=== PATIENT | female | born 1985 | race Caucasian/White ===

== ENCOUNTER 2018-05-01 16:01 | Inpatient (IN) | payer MEDICARE, MEDICAID ==
[2018-05-01 16:28] LABS: ABS Basophils 0.1 10^3/ul (0-0.2); ABS Eosinophils 0.1 10^3/ul (0-0.6); ABS Lymphocytes 1.5 10^3/ul (1.0-4.8); ABS Monocytes 0.6 10^3/ul (0-0.8); ABS Neutrophils 5.8 10^3/ul (1.5-7.7); ABS Nucleated RBC 0 10^3/ul; Eosinophil % 1.5 %; Hematocrit 41 % (35-47); Hemoglobin 14.3 g/dl (12.0-16.0); Lymphocyte % 18.4 %; Mean Corpuscular HGB Conc 35 g/dl (31-36); Mean Corpuscular Hemoglobin 31 pg (27-31); Mean Corpuscular Volume 88 fL (80-97); Mean Platelet Volume 9.1 fL (7.4-10.4); Nucleated Red Blood Cells % 0; Platelet Count 239 10^3/ul (150-450); Red Blood Count 4.67 10^6/ul (4.00-5.40); Red Cell Distribution Width 13 % (10.5-15); White Blood Count 8.1 10^3/ul (3.5-10.8)
[2018-05-01 16:48] LABS: ALT 11 U/L (7-52); AST 13 U/L (13-39); Albumin 3.9 g/dL (3.2-5.2); Albumin/Globulin Ratio 1.4 (1-3); Alkaline Phosphatase 63 U/L (34-104); Anion Gap 8 mmol/L (2-11); BUN/Creatinine Ratio 12.8 (8-20); Blood Urea Nitrogen 10 mg/dL (6-24); CO2 Carbon Dioxide 27 mmol/L (22-32); Calcium 9.4 mg/dL (8.6-10.3); Chloride 105 mmol/L (101-111); EGFR Non-African American 85.1 (>60); Globulin 2.8 g/dL (2-4); Glucose 96 mg/dL (70-100); Potassium 4.1 mmol/L (3.5-5.0); Sodium 140 mmol/L (135-145); Total Protein 6.7 g/dL (6.4-8.9)
--- NOTE | 2018-05-01 17:04 | ED ---
Psychiatric Complaint - HPI Summary HPI Summary: This pt is a 33 y/o female [facility] [place] and SI. Pt reports she feels "like she wants to " because she has an addiction to opiates. Pt states she feels depressed with SI thoughts. Denies SI plan or HI thoughts/plan. Denies alcohol use but admits to tobacco use. Pt also c/o chronic back pain. PMHx includes back problems, fractured ankle. - History Of Current Complaint Chief Complaint: EDMentalHealth Time Seen by Provider: 05/01/18 16:13 Hx Obtained From: Patient Onset/Duration: Lasting Days, Still Present Timing: Days Severity Currently: Moderate Character: Depressed Aggravating Factor(s): Drug Use - opiates Alleviating Factor(s): Nothing Related History: Positive For: Prior Psychiatric Issues Has Suicidal: Reports: Thoughts. Denies: With A Plan Has Homicidal: Denies: Thoughts, With A Plan - Allergies/Home Medications Allergies/Adverse Reactions: Allergies Allergy/AdvReac Type Severity Reaction Status Date / Time MS Clindamycin [Clindamycin] Allergy Severe Vomiting Verified 09/22/14 07:39 MS Amoxicillin Allergy Intermediate Rash Verified 09/22/14 07:39 [From Augmentin] MS Clavulanic Acid Allergy Intermediate Rash Verified 09/22/14 07:39 [From Augmentin] MS Penicillins [Penicillins] Allergy Intermediate Rash Verified 09/22/14 07:39 Home Medications: Home Medications Azithromyxin KALYAN (NF) [Z-Kalyan (Zithromax) 250 mg tabs #6] 2 tab PO .TODAY, THEN 1 DAILY 05/01/18 [History Confirmed 05/01/18] Diclofenac Sodium EC TAB* [Voltaren EC TAB*] 50 mg PO TID PRN 05/01/18 [History Confirmed 05/01/18] Divalproex ER TAB(*) [Depakote ER TAB(*)] 500 mg PO BID 05/01/18 [History Confirmed 05/01/18] Eszopiclone (NF) [Lunesta (NF)] 3 mg PO BEDTIME 05/01/18 [History Confirmed ] Gabapentin CAP(*) [Neurontin 300 CAP(*)] 600 mg PO BID 05/01/18 [History Confirmed 05/01/18] HYDROcodone/ACETAMIN 5-325 MG* [[place] 5-325 TAB*] 1 tab PO BID PRN 05/01/18 [ History Confirmed 05/01/18] LORazepam TAB(*) [Ativan 0.5 MG TAB (*)] 0.5 mg PO BID PRN 05/01/18 [History Confirmed 05/01/18] Lurasidone(*) [Latuda] 60 mg PO DAILY 05/01/18 [History Confirmed 05/01/18] Oxybutynin TAB* [Ditropan TAB*] 5 mg PO BID 05/01/18 [History Confirmed 05/01/18 ] Venlafaxine EXT RELEASE CAP* [Effexor Xr CAP*] 75 mg PO DAILY 05/01/18 [History Confirmed 05/01/18] traMADol TAB* [Ultram*] 50 mg PO BID PRN 05/01/18 [History Confirmed 05/01/18] PMH/Surg Hx/FS Hx/Imm Hx Respiratory History: Reports: Hx Asthma Musculoskeletal History: Reports: Hx Back Problems, Hx of Fracture(s) - ankle Psychiatric History: Reports: Hx Anxiety, Hx Bipolar Disorder, Hx Substance Abuse - opiate Infectious Disease History: No Infectious Disease History: Denies: Traveled Outside the [place] in Last 30 Days - Family History Family History: Mother with depression and anxiety. Maternal grandfather who committed suicide. - Social History Alcohol Use: None Substance Use Type: Reports: Other Substance Use Comment - Amount & Last Used: opiates Smoking Status (MU): Current Every Day Smoker Review of Systems Negative: Fever, Chills Negative: Chest Pain Negative: Shortness Of Breath Negative: Abdominal Pain Musculoskeletal: Other - POS: back pain Psychological: Other - POS: SI Positive: Depressed. Negative: Other - NEGATIVE: HI All Other Systems Reviewed And Are Negative: Yes Physical Exam - Summary Physical Exam Summary: Appearance: Well appearing, no pain distress Skin: warm, dry, reflects adequate perfusion Head/face: normal Eyes: EOMI, WALT ENT: normal Neck: supple, nontender Respiratory: CTA, breath sounds present Cardiovascular: RRR, pulses symmetrical Abdomen: nontender, soft Musculoskeletal: normal, strength/ROM intact Neuro: normal, sensory motor intact, A&Ox3 Psych: depressed affect. Triage Information Reviewed: Yes Vital Signs On Initial Exam: Initial Vitals Temp Pulse Resp BP Pulse Ox 97.9 F 102 18 133/94 97 05/01/18 16:02 05/01/18 16:02 05/01/18 16:02 05/01/18 16:02 05/01/18 16:02 Vital Signs Reviewed: Yes Diagnostics - Vital Signs Vital Signs Temp Pulse Resp BP Pulse Ox 05/01/18 16:02 97.9 F 102 18 133/94 97 - Laboratory Lab Results: Lab Results 05/01/18 05/01/18 Range/Units 16:20 16:20 WBC 8.1 (3.5-10.8) 10^3/ul RBC 4.67 (4.00-5.40) 10^6/ul Hgb 14.3 (12.0-16.0) g/dl Hct 41 (35-47) % MCV 88 (80-97) fL MCH 31 (27-31) pg MCHC 35 (31-36) g/dl RDW 13 (10.5-15) % Plt Count 239 (150-450) 10^3/ul MPV 9.1 (7.4-10.4) fL Neut % (Auto) 72.0 % Lymph % (Auto) 18.4 % [place] % (Auto) 7.2 % Eos % (Auto) 1.5 % Baso % (Auto) 0.9 % Absolute Neuts (auto) 5.8 (1.5-7.7) 10^3/ul Absolute Lymphs (auto) 1.5 (1.0-4.8) 10^3/ul Absolute Monos (auto) 0.6 (0-0.8) 10^3/ul Absolute Eos (auto) 0.1 (0-0.6) 10^3/ul Absolute Basos (auto) 0.1 (0-0.2) 10^3/ul Absolute Nucleated RBC 0 10^3/ul Nucleated RBC % 0 Sodium 140 (135-145) mmol/L Potassium 4.1 (3.5-5.0) mmol/L Chloride 105 (101-111) mmol/L Carbon Dioxide 27 (22-32) mmol/L Anion Gap 8 (2-11) mmol/L BUN 10 (6-24) mg/dL Creatinine 0.78 (0.51-0.95) mg/dL Est GFR ( Amer) 102.9 (>60) Est GFR (Non-Af Amer) 85.1 (>60) BUN/Creatinine Ratio 12.8 (8-20) Glucose 96 (70-100) mg/dL Calcium 9.4 (8.6-10.3) mg/dL Total Bilirubin 0.50 (0.2-1.0) mg/dL AST 13 (13-39) U/L ALT 11 (7-52) U/L Alkaline Phosphatase 63 (34-104) U/L Total Protein 6.7 (6.4-8.9) g/dL Albumin 3.9 (3.2-5.2) g/dL Globulin 2.8 (2-4) g/dL Albumin/Globulin Ratio 1.4 (1-3) TSH Pending Beta HCG, Quant 7.00 mIU/mL Salicylates Pending Acetaminophen Pending Serum Alcohol Pending Result Diagrams: 05/01/18 16:20 05/01/18 16:20 Lab Statement: Any lab studies that have been ordered have been reviewed, and results considered in the medical decision making process. Re-Evaluation - Re-Evaluation First Eval Re-Evaluation Time: 17:51 Comment: Pt is medically cleared. Course/Dx - Course Assessment/Plan: Pt is a 33 y/o female who presents with depression and SI. Pt reports she feels "like she wants to " because she has an addiction to opiates. Pt states she feels depressed with SI thoughts. Denies SI plan or HI thoughts/plan. Pt is medically cleared at 17:51. She is waiting for a mental health evaluation. Pt will be signed out to Dr. Cordero at shift change pending MHE. - Differential Dx/Clinical Impression Provider Diagnosis: Depression Discharge - Sign-Out/Discharge Documenting (check all that apply): Sign-Out Patient Signing out patient TO: Denys Cordero - pending MHE - Discharge Plan Condition: Stable Referrals: No Primary Care Phys,NOPCP [Primary Care Provider] - - Attestation Statements Document Initiated by Scribe: Yes Documenting Scribe: Daily Bennett Provider For Whom Scribe is Documenting (Include Credential): David Carrasco MD Scribe Attestation: IDaily, scribed for David Carrasco MD on 05/01/18 at 1842. Status of Scribe Document: Ready
[2018-05-01 17:08] LABS: Acetaminophen < 15 mcg/mL; Alcohol < 10 mg/dL (<10); Salicylate < 2.50 mg/dL (<30)
[2018-05-01 17:22] LABS: TSH (Thyroid Stimulating Horm) 0.85 mcIU/mL (0.34-5.60)
[2018-05-01 17:24] LABS: Urine Appearance Cloudy; Urine Bilirubin Negative (Negative); Urine Blood Negative (Negative); Urine Color Yellow; Urine Glucose Negative (Negative); Urine Ketones Trace (Negative); Urine Nitrite Negative (Negative); Urine Protein Negative (Negative); Urine Specific Gravity 1.019 (1.010-1.030); Urine Urobilinogen Negative (Negative)
[2018-05-01 17:32] LABS: Barbiturates Urine Screen None Detected (None Detect); Benzodiazepine Urine Screen Presumptive Positive (None Detect); Urine Cannabinoids Screen None Detected (None Detect)
--- OUTSIDE RECORDS SUMMARY | 2018-05-01 17:45 | XMS REPORT | Continuity of Care Document ---
:1985 External Reference #:[id number] Author Name Jeannette Banks Care Team Providers Name Role Phone Erica Lopez MD Primary Care Physician Unavailable Payers Type Date Identification Numbers Payment Provider Subscriber Policy Number: [id number] Medicare Lianne Zabala PayID: [id number] [address] [place] [address] Policy Number: [id number] Medicaid Lianne Zabala Group Name: [id number] [address] PayID: [id number] [place] [address] Advance Directives Description No Information Available Problems Date Description Provider Status Onset: 01/03/2018 Closed fracture of shaft of fibula Tee Adame M.D. Active Family History Date Family Member(s) Problem(s) Comments General Nadine's "diaggnosed to both parents (?) Social History Type Date Description Comments Sex Unknown Lives With Lives With Son Occupation Disabled Tobacco Use Start: Unknown Heavy tobacco smoker (more than 10 cigarettes/day) ETOH Use Denies alcohol use Tobacco Use Start: Unknown Patient is a current smoker, smokes every day Tobacco Use Start: Unknown 1 to 1,5 ppd Smoking Status Reviewed: 04/02/18 1 to 1,5 ppd Exercise Type/Frequency Exercises regularly Allergies, Adverse Reactions, Alerts Date Description Reaction Status Severity Comments 11/18/2013 Augmentin Urticaria Active Severe 11/18/2013 Clindamycin Urticaria Active Severe 01/03/2018 Amoxicillin Active 01/03/2018 Amoxicillin / Clavulanate Active Medications Medication Date Status Form Strength Qnty SIG Indications Ordering Provider Milo 01/04/ Active Tablets 5-325mg 60tab 1 tab up to Tee baird three times Deep, daily as M.D. needed for pain Ventolin HFA / Active Aerosol 108(90Bas 1unit 2 puffs by Unknown 0000 e) s mouth four mcg/Act times a day as needed Venlafaxine HCL / Active Tablets 75mg 1 by mouth Unknown 0000 every day Divalproex // Active Tablets DR 250mg 1 by mouth Unknown Sodium 0000 twice a day Divalproex / Active Tablets DR 500mg take one Unknown Sodium 0000 tablet by mouth twice a day Latuda / Active Tablets 60mg every night Unknown 0000 Gabapentin / Active Capsules 400mg 1 by mouth Unknown 0000 three times a day Methocarbamol / Active Tablets 750mg take 1 Unknown 0000 tablet every six hours as needed for pain. Singulair / Active Tablets 10mg 1 by mouth Unknown 0000 every day Lunesta / Active Tablets 3mg take 1 Unknown 0000 tablet by mouth at bedtime for insomnia - maximum daily dose of 1 per day Ativan / Active Tablets 0.5mg one bid prn Unknown 0000 Knee Scooter 01/03/ Hx 1unit Dx: S82.861A Tee 2018 Heath s Merle Deep, 01/14/ Melvi Dubose 2018 fx, has to be nwb for 4 to 6 weeks Buspirone HCL / Hx Tablets 5mg 30tab 1 by mouth Unknown 0000 - s twice a day 2013 Abilify / Hx Tablets 5mg 30tab 1 by mouth Unknown 0000 - s every day 2013 Abilify / Hx Tablets 2mg 30tab 1 by mouth Unknown 0000 - s every night 2013 Melatonin / Hx Capsules 5mg 1 by mouth Unknown 0000 - every night 01/19/ at bedtime 2013 Venlafaxine HCL / Hx Tablets 37.5mg 1 by mouth Unknown 0000 - every day 2013 Trileptal / Hx Tablets 300mg 180ta 2 tabs by Unknown 0000 - bs mouth twice 01/19/ a day as 2013 directed Vit C // Hx 2000mg Unknown 0000 - 2017 Clonazepam / Hx Tablets 0.5mg Unknown 0000 - 2017 Zolpidem 00/00/ Hx Tablets 10mg 1/2 to 1 tab Unknown Tartrate 0000 - by mouth every night 2018 at bedtime as needed Lurasidone / Hx 60 mg a day Unknown Hyrochloride 0000 - 2017 Hydrocodone-Butch / Hx Tablets 5-325mg 1 or 2 tabs Unknown taminophen 0000 - by mouth 01/14/ every 6-8 2018 hours as needed for pain Methocarbamol / Hx Tablets 500mg 1 by mouth Unknown 0000 - twice a day 12/17/ as needed 2018 for spasm Ibuprofen / Hx Tablets 600mg three times Unknown 0000 - a day 2017 Immunizations Description No Information Available Vital Signs Date Vital Result Comment 04/02/2018 9:41am Height 64 inches 5'4" Weight 256.00 lb Heart Rate 80 /min BP Systolic Recheck 130 mmHg BP Diastolic Recheck 82 mmHg Respiratory Rate 16 /min Body Temperature 98.4 F BMI (Body Mass Index) 43.9 kg/m2 03/05/2018 8:55am Height 64 inches 5'4" Weight 250.00 lb Heart Rate 76 /min BP Systolic Recheck 128 mmHg BP Diastolic Recheck 84 mmHg Respiratory Rate 16 /min Body Temperature 98.4 F BMI (Body Mass Index) 42.9 kg/m2 02/19/2018 11:37am Height 64 inches 5'4" Weight 250.00 lb Heart Rate 76 /min BP Systolic Recheck 122 mmHg BP Diastolic Recheck 76 mmHg Respiratory Rate 16 /min Body Temperature 98.4 F BMI (Body Mass Index) 42.9 kg/m2 01/31/2018 11:21am Height 64 inches 5'4" Weight 250.00 lb Heart Rate 76 /min BP Systolic Recheck 136 mmHg BP Diastolic Recheck 84 mmHg Respiratory Rate 16 /min Body Temperature 99.1 F BMI (Body Mass Index) 42.9 kg/m2 01/15/2018 4:20pm Height 64 inches 5'4" Weight 250.00 lb Heart Rate 88 /min BP Systolic Recheck 128 mmHg BP Diastolic Recheck 84 mmHg Respiratory Rate 16 /min Body Temperature 97.4 F BMI (Body Mass Index) 42.9 kg/m2 01/03/2018 9:09am Height 64 inches 5'4" Weight 250.00 lb Heart Rate 76 /min BP Systolic Recheck 132 mmHg BP Diastolic Recheck 84 mmHg Respiratory Rate 16 /min Body Temperature 97.5 F BMI (Body Mass Index) 42.9 kg/m2 01/19/2014 3:02pm Height 63.5 inches 5'3.50" Weight 208.00 lb Heart Rate 76 /min BP Systolic Sitting 104 mmHg BP Diastolic Sitting 70 mmHg Pain Level 5 BMI (Body Mass Index) 36.3 kg/m2 11/18/2013 3:24pm Height 63.5 inches 5'3.50" Weight 197.25 lb Heart Rate 78 /min BP Systolic Sitting 118 mmHg BP Diastolic Sitting 80 mmHg BMI (Body Mass Index) 34.4 kg/m2 Results Description No Information Available Procedures Date Code Description Status 01/04/2018 68951 Open [place] Of Distaltibiofibular JT Disruption W Or W/O Completed Fixation 01/04/2018 25897 ORIF Open TX Medial Malleolus FX Incl Internal Fixation Completed Encounters Type Date Location Provider Dx Diagnosis Office Visit 01/03/2018 Orthopedic Services Tee Adame, S82.861A Displaced 9:00a Of [facility] AT Michael Dubose [place]isonneuve's fracture of right leg, init Office Visit 01/19/2014 Rheumatology Benji Beatty, 729.1 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 at [facility] AT Rvgenvmo29/20/2018 - Tee Adame M.D.S82.861D Displaced Maisonneuve's fracture of right leg, subsequent en
--- OUTSIDE RECORDS SUMMARY | 2018-05-01 17:45 | XMS REPORT | Continuity of Care Document ---
:1985 External Reference #:[id number] Author Name Alka Piña Care Team Providers Name Role Phone rEica Lopez MD Primary Care Physician Unavailable Payers Type Date Identification Numbers Payment Provider Subscriber Policy Number: [id number] Medicare Lianne Zabala PayID: [id number] [address] [place] [address] Policy Number: [id number] Medicaid Lianne Zabala Group Name: [id number] [address] PayID: [id number] [place] [address] Advance Directives Description No Information Available Problems [...] 1 to 1,5 ppd Smoking Status Reviewed: 04/25/18 1 to 1,5 ppd Exercise Type/Frequency Exercises regularly Allergies, Adverse Reactions, Alerts Date Description Reaction Status Severity Comments 11/18/2013 Augmentin Urticaria Active Severe 11/18/2013 Clindamycin Urticaria Active Severe 01/03/2018 Amoxicillin Active 01/03/2018 Amoxicillin / Clavulanate Active Medications Medication Date Status Form Strength Qnty SIG Indications Ordering Provider Ventolin HFA / Active Aerosol 108(90Bas 1unit 2 puffs by Unknown 0000 e) s mouth four mcg/Act times a day as needed Venlafaxine HCL / Active Tablets 75mg 1 by mouth Unknown 0000 every day Divalproex 00/ Active Tablets DR 250mg 1 by mouth [...] Tablets 0.5mg one bid prn Unknown 0000 Tramadol HCL / Active Tablets 50mg 1 bid prn Unknown 0000 [place] 01/04/ Hx Tablets 5-325mg 40tab 1 to 2 tabs Tee 2017 Heath baird daily as Deep, 04/22/ needed for Gracy 2018 pain Knee Scooter 01/03/ Hx 1unit Dx: S82.861A Tee 2017 Heath s Displaced Deep, 01/14/ Melvi Small fx, has to be nwb for 4 [...] a day as 2013 directed Vit C / Hx 2000mg Unknown 0000 - 2017 Clonazepam / Hx Tablets 0.5mg Unknown 0000 - 2017 Zolpidem / Hx Tablets 10mg 1/2 to 1 tab Unknown Tartrate 0000 - by mouth every night 2018 at bedtime as needed Lurasidone / Hx 60 mg a day Unknown Hyrochloride 0000 - 2017 Hydrocodone-Butch / Hx Tablets 5-325mg 1 or 2 tabs Unknown taminophen 0000 - by mouth every 6-8 2018 hours as needed for pain Methocarbamol / Hx Tablets 500mg 1 by mouth Unknown 0000 - twice a day as needed 2018 for spasm Ibuprofen / Hx Tablets 600mg three times Unknown 0000 - a day 2017 Immunizations Description No Information Available Vital Signs Date Vital Result Comment 04/25/2018 8:41am Height 64 inches 5'4" Weight 266.00 lb Heart Rate 80 /min BP Systolic Recheck 132 mmHg BP Diastolic Recheck 84 mmHg Respiratory Rate 16 /min Body Temperature 981.0 F BMI (Body Mass Index) 45.7 kg/m2 04/02/2018 9:41am Height 64 inches 5'4" Weight [...] Available Procedures Date Code Description Status 01/04/2018 62595 Open TX Of Distaltibiofibular JT Disruption W Or W/O Completed Fixation 01/04/2018 51110 ORIF Open TX Medial Malleolus FX Incl Internal Fixation Completed Encounters Type Date Location Provider Dx Diagnosis Office Visit 01/03/2018 Orthopedic Services Tee Adame, S82.861A Displaced 9:00a Of [facility] AT Michaelfransico Dubose Maisonneuve's fracture of right leg, init Office Visit 01/19/2014 Rheumatology Benji Beatty, 729.1 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 at [facility] AT Ugypmpul67/13/2018 - Tee Adame M.D.S82.861D Displaced Maisonneuve's fracture of right leg, subsequent enFollow up:6 weeks
--- OUTSIDE RECORDS SUMMARY | 2018-05-01 17:45 | XMS REPORT ---
:[address] [facility] Care Team Providers Name Role Phone Ernesto Juárez Unavailable Unavailable PROBLEMS Unknown Problems ALLERGIES No Information ENCOUNTERS Encounter Location Date Diagnosis [address] [address] Jun, [address] [address] Jun, [address] [address] Apr, [address] [address] Apr, [facility] [address] [place], [place] Apr, [id number] [address] Dec, [address] [address] Oct, [place] [id number] [place], [address] [address] Jun, [address] [address] May, [address] [address] Apr, IMMUNIZATIONS No Known Immunizations SOCIAL HISTORY Never Assessed REASON FOR REFERRAL FUNCTIONAL STATUS PLAN OF CARE VITAL SIGNS MEDICATIONS Unknown Medications PROCEDURES No Known procedures RESULTS No Results REASON FOR VISIT Schedule cleaning and exam Insurance Providers [facility]ly [facility] Member Patient Patient Patient Patient Patient Subscriber Subscriber Subscriber Group Insurance Plan Plan Plan Plan ID Relationship Address Phone Name Date of ID Name Date of No Type Insurance Insurance Insurance Coverage to Subscriber Address Phone Name Dates Medicare National [id number] Medicare self Juliette [id number] P[employer] Government [employer] [address] [facility] [id number] Medicaid [address] [phone] Medicaid self Juliette [id number] [facility] [address] [place] [id number]
[2018-05-01] MEDS ORDERED: Ibuprofen TAB* 600 MG PO ONE (18:23)
--- NOTE | 2018-05-01 19:26 | ED ---
Progress - Progress Note Progress Note: SIGN-OUT FROM DR. MCCORD AT SHIFT CHANGE PENDING MHE AND DISPO. A 33 y/o F presents to ED for MHE c/o depression and SI. Re-Evaluation - Re-Evaluation First Eval Re-Evaluation Time: 17:51 Comment: Pt is medically cleared. Course/Dx - Course Course Of Treatment: SIGN-OUT FROM DR. MCCORD AT SHIFT CHANGE PENDING MHE AND DISPO. Nurses note reviewed. At 1915: Spoke with retail branch manager: Pt will be voluntarily admitted to [facility] per Dr. Swan, psych. Patient given treatment for her cough and cold symptoms. Outpatient Zithromax continued. - Diagnoses Provider Diagnoses: Opioid-induced mood disorder, Upper respiratory infection Discharge - Sign-Out/Discharge Documenting (check all that apply): Patient Departure - Admit, Receiving Sign- Out Receiving patient FROM: David Mccord - Discharge Plan Condition: Stable Disposition: [facility] [place] - Billing Disposition and Condition Condition: STABLE Disposition: Psychiatric Facility [facility] [place] - Attestation Statements Document Initiated by Scribe: Yes Documenting Scribe: Cristy Henriquez Provider For Whom Scribe is Documenting (Include Credential): Dr. Denys Cordero MD Scribe Attestation: ICristy scribed for Dr. Denys Cordero MD on 05/01/18 at 2341. Scribe Documentation Reviewed: Yes Provider Attestation: The documentation as recorded by the Cristy rosado accurately reflects the service I personally performed and the decisions made by me, Dr. Denys Cordero MD Status of Scribe Document: Viewed
[2018-05-01] MEDS ORDERED: guaiFENesin ER TAB 600 MG PO ONE (20:35)
[2018-05-01] MEDS ORDERED: Azithromycin TAB* 250 MG PO ONE (20:35)
[2018-05-01] MEDS ORDERED: Nicotine GUM* 2 MG PO PRN (20:48)
[2018-05-01] MEDS ORDERED: hydrOXYzine HCL TAB* 50 MG PO PRN (20:48)
[2018-05-01] MEDS ORDERED: Acetaminophen TAB* 325 MG PO PRN (20:48)
[2018-05-01] MEDS ORDERED: Al Hydrox/Mg Hydrox/Simet LIQ* 30 ML UDC PO PRN (20:48)
[2018-05-01] MEDS ORDERED: Mouth Piece, Nicotine* 1 EACH CARTRIDGE INH SCH (20:48)
[2018-05-02 07:24] LABS: HDL Cholesterol 28.8 mg/dL
[2018-05-02] MEDS: Gabapentin CAP(*) 300 MG PO SCH ×2 (07:32→20:30)
[2018-05-02] MEDS: Oxybutynin TAB* 5 MG PO SCH ×2 (07:33→20:30)
[2018-05-02] MEDS: Vitamin THERAPEUTIC TAB PO SCH (07:33)
[2018-05-02] MEDS: Lurasidone(*) 60 MG TAB PO SCH (08:39)
[2018-05-02] MEDS ORDERED: Venlafaxine EXT RELEASE CAP* 75 MG PO SCH (09:00)
[2018-05-02] MEDS ORDERED: Divalproex ER TAB(*) 500 MG PO SCH (09:00)
[2018-05-02] MEDS ORDERED: traMADol TAB* 50 MG PO ONE ×2 (11:18→21:00)
[2018-05-02] MEDS ORDERED: Gabapentin CAP(*) 300 MG PO ONE (11:18)
[2018-05-02] MEDS: Azithromycin TAB* 250 MG PO SCH (13:57)
[2018-05-02] MEDS: Nicotine PATCH 21 MG/24 HR* PATCH TRANSDERM SCH (13:59)
[2018-05-02] MEDS: Benzocaine/Menthol LOZ* 1 LOZENGE MT PRN (13:59)
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
[2018-05-02] MEDS: Divalproex ER TAB(*) 500 MG PO SCH (20:32)
[2018-05-02] MEDS: Nicotine Patch Removal NOTE FOLLOW UP SCH (21:07)
[2018-05-02] MEDS: Nicotine Inhaler* 10 MG AMP INH PRN (22:05)
[2018-05-03 08:17] LABS: HCG Pregnancy < 0.60 mIU/mL
[2018-05-03] MEDS: Nicotine PATCH 21 MG/24 HR* PATCH TRANSDERM SCH (08:59)
[2018-05-03] MEDS: Lurasidone(*) 60 MG TAB PO SCH (09:00)
[2018-05-03] MEDS: Azithromycin TAB* 250 MG PO SCH (09:01)
[2018-05-03] MEDS: Venlafaxine EXT RELEASE CAP* 37.5 MG PO SCH (09:01)
[2018-05-03] MEDS: Vitamin THERAPEUTIC TAB PO SCH (09:01)
[2018-05-03] MEDS: Gabapentin CAP(*) 300 MG PO SCH ×3 (09:02→21:11)
[2018-05-03] MEDS: Oxybutynin TAB* 5 MG PO SCH ×2 (09:02→21:11)
[2018-05-03] MEDS: Nicotine Inhaler* 10 MG AMP INH PRN ×3 (10:00→17:03)
[2018-05-03] MEDS: traMADol TAB* 50 MG PO PRN ×2 (11:28→22:28)
[2018-05-03] MEDS: LORazepam TAB(*) 0.5 MG PO PRN ×2 (14:30→21:13)
--- NOTE | 2018-05-03 15:35 | PN ---
Subjective - Subjective Date of Service: 05/03/18 Service Type: 88674 Hosp care 25 min moderate complexity Subjective: Patient endorses psychological withdrawal. She reports diffuse pain in her mid and lower back. She reports slight improvement in sleep last night. We review past medications. She endorses trial of duloxetine and trazodone. She states history of tapering from depakote with and experiencing significant mood lability. She agrees to continue with stopping norco but would like to continue tramadol. Armature Repairer discussed recommendation to avoid suboxone treatment at this time and to utilize lorazepam for anxiety related to withdrawal from hydrocodone. Patient notified of blood results, including negative Hcg. Objective - Appearance Appearance: Obese Dysmorphic Features: Yes Hygiene: Normal Grooming: Fairly Well Kept - Behavior Psychomotor Activities: Normal Exhibits Abnormal Movement: No - Attitude and Relatedness Attitude and Relatedness: Cooperative Eye Contact: Fair - Speech Quality: Unpressured Latencies: Normal Quantity: Appropriate - Mood Patient's Decription of Mood: "Anxious" - Affect Observed Affect: Depressed Affect Consistent with: Dysphoria - Thought Process Patient's Thought Process: Coherent, Circumstantial Thought Content: Yes Passive Wish, No Suicidal Planning, No Homicidal Ideation, No Paranoid Ideation - Sensorium Experiencing Hallucinations: No, Sensorium is Clear Type of Hallucinations: Visual: No, Auditory: No, Command: No - Level of Consciousness Level of Consciousness: Alert Orientation: Yes Intact, Yes Orientated to Time, Yes Orientated to Place, Yes Orientated to Person - Impulse Control Impulse Control: Intact - Insight and Judgement Insight and Judgement: Poor - Group Participation Particating in Group Activities: Yes - Medication Management Medication Management Adherence: Yes Assessment - Assessment Merits Inpatient Hospitalization: For Immediate Safety, For Stabilization Inpatient DSM-V Dx: F11.23 Clinical Impression: 33yo wf, mentally disabled, , domiciled who presented to ED self- referred due to suicidal ideation and request for detox from opiate pain medication. She is tolerating discontinuation of hydrocodone and wants to remain on tramadol. She has a history of bipolar d/o and is prescribed Latuda, Depakote, venlafaxine. She merits hospitalization for immediate safety and stabilization. Plan - Plan Treatment Plan: Name: GENNARO MARTINEZ Birthdate: 1985 [id number] continue acute intensive psychiatric treatment. may decrease to q30min and allow staff pass. Due to unit acuity, patient may visit with her and 3yo off unit with staff per RN discretion. medication changes: increase lorazepam temporarily to assist in detoxification from opiate pain medication; change ambien to Lunesta (patient to provide own). discharge tentative for 05/06/18. Continued Medication Management: Different Medication Medications: Current Medications Acetaminophen (Tylenol Tab*) 650 mg PO Q4H PRN PRN Reason: PAIN or TEMP > 101 F Last Admin: 05/02/18 17:52 Dose: 650 mg Al Hydrox/Mg Hydrox/Simethicone (Maalox Plus*) 30 ml PO Q4H PRN PRN Reason: INDIGESTION Azithromycin (Zithromax Tab*) 250 mg PO DAILY [facility] Stop: 05/05/18 09:01 Last Admin: 05/03/18 09:01 Dose: 250 mg Device (Nicotine Mouth Piece*) 1 each INH .[facility] Last Admin: 05/02/18 22:06 Dose: 1 each Divalproex Sodium (Depakote Er Tab(*)) 1,000 mg PO BEDTIME [facility] Last Admin: 05/02/18 20:32 Dose: 1,000 mg Gabapentin (Neurontin Cap(*)) 600 mg PO TID [facility] Last Admin: 05/03/18 14:28 Dose: 600 mg Lorazepam (Ativan Tab(*)) 0.5 mg PO Q4H PRN PRN Reason: ANXIETY Last Admin: 05/03/18 14:30 Dose: 0.5 mg Lurasidone HCl (Latuda) 60 mg PO DAILY [facility] Last Admin: 05/03/18 09:00 Dose: 60 mg Multivitamins (Theragran Tab*) 1 tab PO DAILY [facility] Last Admin: 05/03/18 09:01 Dose: 1 tab Nicotine (Nicotine Inhaler*) 10 mg INH Q2H PRN PRN Reason: CRAVING Last Admin: 05/03/18 14:34 Dose: 10 mg Nicotine (Nicotine Patch 21 Mg/24 Hr*) 1 patch TRANSDERM DAILY [facility] Last Admin: 05/03/18 08:59 Dose: 1 patch Nicotine Polacrilex (Nicotine Gum*) 2 mg PO Q2H PRN PRN Reason: CRAVING Oxybutynin Chloride (Ditropan Tab*) 5 mg PO BID [facility] Last Admin: 05/03/18 09:02 Dose: 5 mg Pharmacy Profile Note (Nicotine Patch Removal Note*) 1 note FOLLOW UP 2100 [facility] Last Admin: 05/02/18 21:07 Dose: 1 note Throat Lozenges (Chloraseptic Sravan*) 1 sravan MT Q2H PRN PRN Reason: SORE THROAT Last Admin: 05/02/18 13:59 Dose: 1 sravan Tramadol HCl (Ultram*) 50 mg PO Q12H PRN PRN Reason: PAIN Last Admin: 05/03/18 11:28 Dose: 50 mg Venlafaxine HCl (Effexor Xr Cap*) 37.5 mg PO DAILY [facility] Last Admin: 05/03/18 09:01 Dose: 37.5 mg - Discharge Plan Discharge Plan: Outpatient Follow Up Outpatient Program: [facility]
[2018-05-03] MEDS ORDERED: Zolpidem TAB* 10 MG PO SCH (21:00)
[2018-05-03] MEDS: Divalproex ER TAB(*) 500 MG PO SCH (21:11)
[2018-05-03] MEDS: Nicotine Patch Removal NOTE FOLLOW UP SCH (21:12)
[2018-05-03] MEDS: PTO: Eszopiclone (NF) 3 MG TAB PO SCH (22:27)
[2018-05-04] MEDS: Vitamin THERAPEUTIC TAB PO SCH (07:52)
[2018-05-04] MEDS: Venlafaxine EXT RELEASE CAP* 37.5 MG PO SCH (07:52)
[2018-05-04] MEDS: Gabapentin CAP(*) 300 MG PO SCH ×3 (07:52→21:21)
[2018-05-04] MEDS: LORazepam TAB(*) 0.5 MG PO PRN ×3 (07:53→21:25)
[2018-05-04] MEDS: Lurasidone(*) 60 MG TAB PO SCH (07:53)
[2018-05-04] MEDS: Azithromycin TAB* 250 MG PO SCH (07:54)
[2018-05-04] MEDS: Oxybutynin TAB* 5 MG PO SCH ×2 (07:54→21:23)
[2018-05-04] MEDS: Nicotine PATCH 21 MG/24 HR* PATCH TRANSDERM SCH (07:54)
[2018-05-04] MEDS: traMADol TAB* 50 MG PO PRN ×2 (09:14→21:23)
[2018-05-04] MEDS: Nicotine Inhaler* 10 MG AMP INH PRN ×3 (11:40→21:24)
[2018-05-04] MEDS ORDERED: Ibuprofen TAB* 600 MG PO ONE (18:45)
[2018-05-04] MEDS: Divalproex ER TAB(*) 500 MG PO SCH (21:22)
[2018-05-04] MEDS: PTO: Eszopiclone (NF) 3 MG TAB PO SCH (21:22)
[2018-05-04] MEDS: Benzocaine/Menthol LOZ* 1 LOZENGE MT PRN (21:23)
[2018-05-04] MEDS: Nicotine Patch Removal NOTE FOLLOW UP SCH (21:28)
[2018-05-05] MEDS: Nicotine PATCH 21 MG/24 HR* PATCH TRANSDERM SCH (08:55)
[2018-05-05] MEDS: Gabapentin CAP(*) 300 MG PO SCH ×4 (08:56→21:29)
[2018-05-05] MEDS: Azithromycin TAB* 250 MG PO SCH (08:56)
[2018-05-05] MEDS: Vitamin THERAPEUTIC TAB PO SCH (08:57)
[2018-05-05] MEDS: Lurasidone(*) 60 MG TAB PO SCH (08:57)
[2018-05-05] MEDS: Oxybutynin TAB* 5 MG PO SCH ×2 (08:57→21:30)
[2018-05-05] MEDS: Venlafaxine EXT RELEASE CAP* 37.5 MG PO SCH (08:57)
[2018-05-05] MEDS: LORazepam TAB(*) 0.5 MG PO PRN ×2 (08:59→16:06)
[2018-05-05] MEDS: Nicotine Inhaler* 10 MG AMP INH PRN ×3 (08:59→22:13)
[2018-05-05] MEDS: traMADol TAB* 50 MG PO PRN ×2 (09:37→21:46)
--- NOTE | 2018-05-05 14:55 | PN ---
Subjective - Subjective Date of Service: 05/05/18 Service Type: 20325 Hosp care 15 min low complexity Subjective: Juliette reports that she feels little down today because of being here. Wants to be depressed. Body pain has been better with improved sleep. Denies hallucinations, delusions, SI or HI. Was in the milieu engaged in unit activities. Objective - Appearance Appearance: Obese Dysmorphic Features: No Hygiene: Mal-odorous Grooming: Disheveled - Behavior Psychomotor Activities: Normal Exhibits Abnormal Movement: No - Attitude and Relatedness Attitude and Relatedness: Appropriate Eye Contact: Good - Speech Quality: Unpressured Latencies: Normal Quantity: Appropriate - Mood Patient's Decription of Mood: "Sad" - Affect Observed Affect: Depressed Affect Consistent with: Dysphoria - Thought Process Patient's Thought Process: Coherent, Goal Directed Thought Content: No Passive Wish, No Suicidal Planning, No Homicidal Ideation, No Paranoid Ideation - Sensorium Experiencing Hallucinations: No, Sensorium is Clear Type of Hallucinations: Visual: No, Auditory: No, Command: No - Level of Consciousness Level of Consciousness: Alert Orientation: Yes Intact, Yes Orientated to Time, Yes Orientated to Place, Yes Orientated to Person - Impulse Control Impulse Control: Intact - Insight and Judgement Insight and Judgement: Fair - Group Participation Particating in Group Activities: Yes - Medication Management Medication Management Adherence: Yes Assessment - Assessment Merits Inpatient Hospitalization: Consolidate Improvements Inpatient DSM-V Dx: F11.23 Clinical Impression: 33yo wf, mentally disabled, , domiciled who presented to ED self- referred due to suicidal ideation and request for detox from opiate pain medication. She is tolerating discontinuation of hydrocodone and wants to remain on tramadol. She has a history of bipolar d/o and is prescribed Latuda, Depakote, venlafaxine. She merits hospitalization for immediate safety and stabilization. Plan - Plan Treatment Plan: Name: GENNARO MARTINEZ Birthdate: 1985 [id number] continue acute intensive psychiatric treatment. may decrease to q30min and allow staff pass. Due to unit acuity, patient may visit with her and 3yo off unit with staff per RN discretion. medication changes: increase lorazepam temporarily to assist in detoxification from opiate pain medication; change ambien to Lunesta (patient to provide own). discharge tentative for 05/06/18. Continued Medication Management: Continue Outpt Medication Medications: Current Medications Acetaminophen (Tylenol Tab*) 650 mg PO Q4H PRN PRN Reason: PAIN or TEMP > 101 F Last Admin: 05/02/18 17:52 Dose: 650 mg Al Hydrox/Mg Hydrox/Simethicone (Maalox Plus*) 30 ml PO Q4H PRN PRN Reason: INDIGESTION Device (Nicotine Mouth Piece*) 1 each INH [facility] Last Admin: 05/02/18 22:06 Dose: 1 each Divalproex Sodium (Depakote Er Tab(*)) 1,000 mg PO BEDTIME [facility] Last Admin: 05/04/18 21:22 Dose: 1,000 mg Eszopiclone (Lunesta (Nf)) 3 mg PO BEDTIME [facility] Last Admin: 05/04/18 21:22 Dose: 3 mg Gabapentin (Neurontin Cap(*)) 600 mg PO TID [facility] Last Admin: 05/05/18 14:15 Dose: 600 mg Lorazepam (Ativan Tab(*)) 0.5 mg PO Q4H PRN PRN Reason: ANXIETY Last Admin: 05/05/18 08:59 Dose: 0.5 mg Lurasidone HCl (Latuda) 60 mg PO DAILY [facility] Last Admin: 05/05/18 08:57 Dose: 60 mg Multivitamins (Theragran Tab*) 1 tab PO DAILY [facility] Last Admin: 05/05/18 08:57 Dose: 1 tab Nicotine (Nicotine Inhaler*) 10 mg INH Q2H PRN PRN Reason: CRAVING Last Admin: 05/05/18 14:15 Dose: 10 mg Nicotine (Nicotine Patch 21 Mg/24 Hr*) 1 patch TRANSDERM DAILY [facility] Last Admin: 05/05/18 08:55 Dose: 1 patch Nicotine Polacrilex (Nicotine Gum*) 2 mg PO Q2H PRN PRN Reason: CRAVING Oxybutynin Chloride (Ditropan Tab*) 5 mg PO BID [facility] Last Admin: 05/05/18 08:57 Dose: 5 mg Pharmacy Profile Note (Nicotine Patch Removal Note*) 1 note FOLLOW UP 2100 [facility] Last Admin: 05/04/18 21:28 Dose: 1 note Throat Lozenges (Chloraseptic Sravan*) 1 sravan MT Q2H PRN PRN Reason: SORE THROAT Last Admin: 05/04/18 21:23 Dose: 1 sravan Tramadol HCl (Ultram*) 50 mg PO Q12H PRN PRN Reason: PAIN Last Admin: 05/05/18 09:37 Dose: 50 mg Venlafaxine HCl (Effexor Xr Cap*) 37.5 mg PO DAILY [facility] Last Admin: 05/05/18 08:57 Dose: 37.5 mg - Discharge Plan Discharge Plan: Outpatient Follow Up Outpatient Program: Zana Cooper [facility]
[2018-05-05] MEDS ORDERED: Zolpidem TAB* 10 MG PO SCH (21:00)
[2018-05-05] MEDS: Divalproex ER TAB(*) 500 MG PO SCH (21:28)
[2018-05-05] MEDS: Nicotine Patch Removal NOTE FOLLOW UP SCH (21:31)
[2018-05-06] MEDS: Gabapentin CAP(*) 300 MG PO SCH ×2 (08:46→13:35)
[2018-05-06] MEDS: Venlafaxine EXT RELEASE CAP* 37.5 MG PO SCH (08:47)
[2018-05-06] MEDS: Oxybutynin TAB* 5 MG PO SCH (08:47)
[2018-05-06] MEDS: Vitamin THERAPEUTIC TAB PO SCH (08:47)
[2018-05-06] MEDS: Lurasidone(*) 60 MG TAB PO SCH (08:48)
[2018-05-06] MEDS: traMADol TAB* 50 MG PO PRN (08:49)
[2018-05-06] MEDS: Nicotine PATCH 21 MG/24 HR* PATCH TRANSDERM SCH (08:51)
[2018-05-06] MEDS: Nicotine Inhaler* 10 MG AMP INH PRN (08:51)
[2018-05-06 11:38] VITALS: BP 132/78
[2018-05-06] MEDS ORDERED: Ibuprofen TAB* 800 MG PO PRN (13:23)
[2018-05-06] MEDS: LORazepam TAB(*) 0.5 MG PO PRN (13:36)
--- NOTE | 2018-05-06 14:04 | DCNOTE ---
Subjective - Subjective Service Types: [id number] Hosp DC Day Mgmt simple under 30 min Discharge Date: 05/06/18 Subjective: Lianne is happy and eager to leave. She has gotten herself ready to go and is prepared to go home with her , Jeancarlos. Lianne does request an additional tramadol, which I decline to give her as the order is q12 hours and she had taken her original dose around 0900 and her discharge was scheduled for 1300. I did order 800 mg of ibuprofen for her. Lianne reported being safe and eager to leave. Objective - Appearance Appearance: Well Developed/Nourished, Obese Dysmorphic Features: No Hygiene: Normal Grooming: Fairly Well Kept - Behavior Psychomotor Activities: Normal Exhibits Abnormal Movement: No - Attitude and Relatedness Attitude and Relatedness: Cooperative Eye Contact: Good - Speech Quality: Unpressured Latencies: Normal Quantity: Appropriate - Mood Patient's Decription of Mood: "Fine" - Affect Observed Affect: Fair Affect Consistent with: Euthymia - Thought Process Patient's Thought Process: Coherent, Goal Directed Thought Content: No Passive Wish, No Suicidal Planning, No Homicidal Ideation, No Paranoid Ideation - Sensorium Experiencing Hallucinations: No, Sensorium is Clear Type of Hallucinations: Visual: No, Auditory: No, Command: No - Level of Consciousness Level of Consciousness: Alert Orientation: Yes Intact, Yes Orientated to Time, Yes Orientated to Place, Yes Orientated to Person - Impulse Control Impulse Control: Intact - Insight and Judgement Insight and Judgement: Good - Medication Management Medication Management Adherence: Yes DC Assessment - Assessment Clinical Impression: 33yo wf, mentally disabled, , domiciled who presented to ED self- referred due to suicidal ideation and request for detox from opiate pain medication. She is tolerating discontinuation of hydrocodone and wants to remain on tramadol. She has a history of bipolar d/o and is prescribed Latuda, Depakote, venlafaxine. She merits hospitalization for immediate safety and stabilization. Merits Inpatient Hospitalization: No Clear for Discharge: Adequate Clinical Respons, Acceptable Safety Profile Inpatient DSM-V Dx: F11.23 Discharge Planning - Discharge Planning Discharge Plan: Outpatient Follow Up Recommendations for Continuing Care: Medication Management, Psychotherapy Medications: Current Medications Acetaminophen (Tylenol Tab*) 650 mg PO Q4H PRN PRN Reason: PAIN or TEMP > 101 F Last Admin: 05/02/18 17:52 Dose: 650 mg Al Hydrox/Mg Hydrox/Simethicone (Maalox Plus*) 30 ml PO Q4H PRN PRN Reason: INDIGESTION Device (Nicotine Mouth Piece*) 1 each INH [facility] Last Admin: 05/02/18 22:06 Dose: 1 each Divalproex Sodium (Depakote Er Tab(*)) 1,000 mg PO BEDTIME [facility] Last Admin: 05/05/18 21:28 Dose: 1,000 mg Gabapentin (Neurontin Cap(*)) 600 mg PO TID [facility] Last Admin: 05/06/18 13:35 Dose: 600 mg Ibuprofen (Motrin Tab*) 800 mg PO ONCE PRN PRN Reason: PAIN Last Admin: 05/06/18 13:36 Dose: 800 mg Lorazepam (Ativan Tab(*)) 0.5 mg PO Q4H PRN PRN Reason: ANXIETY Last Admin: 05/06/18 13:36 Dose: 0.5 mg Lurasidone HCl (Latuda) 60 mg PO DAILY [facility] Last Admin: 05/06/18 08:48 Dose: 60 mg Multivitamins (Theragran Tab*) 1 tab PO DAILY [facility] Last Admin: 05/06/18 08:47 Dose: 1 tab Nicotine (Nicotine Inhaler*) 10 mg INH Q2H PRN PRN Reason: CRAVING Last Admin: 05/06/18 08:51 Dose: 10 mg Nicotine (Nicotine Patch 21 Mg/24 Hr*) 1 patch TRANSDERM DAILY [facility] Last Admin: 05/06/18 08:51 Dose: 1 patch Nicotine Polacrilex (Nicotine Gum*) 2 mg PO Q2H PRN PRN Reason: CRAVING Oxybutynin Chloride (Ditropan Tab*) 5 mg PO BID [facility] Last Admin: 05/06/18 08:47 Dose: 5 mg Pharmacy Profile Note (Nicotine Patch Removal Note*) 1 note FOLLOW UP 2100 [facility] Last Admin: 05/05/18 21:31 Dose: 1 note Throat Lozenges (Chloraseptic Honey*) 1 honey MT Q2H PRN PRN Reason: SORE THROAT Last Admin: 05/04/18 21:23 Dose: 1 honey Tramadol HCl (Ultram*) 50 mg PO Q12H PRN PRN Reason: PAIN Last Admin: 05/06/18 08:49 Dose: 50 mg Venlafaxine HCl (Effexor Xr Cap*) 37.5 mg PO DAILY [facility] Last Admin: 05/06/18 08:47 Dose: 37.5 mg Zolpidem Tartrate (Ambien Tab*) 10 mg PO BEDTIME [facility] Last Admin: 05/05/18 21:30 Dose: 10 mg Discharge Planning: Prescriptions provided for discharge [] Yes [] No Follow up care details as per social work arrangements. Patient response to discharge plan: [] eager for discharge [] agreeable with discharge plan [] ambivalent about discharge [] disagrees with discharge today
--- NOTE | 2018-05-08 16:31 | DS ---
CC: Dr. Erica Lopez; [facility]* DISCHARGE SUMMARY: DATE OF ADMISSION: 05/01/18 DATE OF DISCHARGE: 05/06/18 SUPERVISING PSYCHIATRIST: Germán Stone MD* (dictated by ISABELLA Rausch) . DISCHARGE DIAGNOSES: 1. Opioid dependence. 2. Bipolar 1 disorder by history. 3. Unspecified anxiety disorder. CONDITION AT THE TIME OF DISCHARGE: Improved. The patient is no longer voicing suicidal ideation. She has been discontinued from hydrocodone. She reports desire to continue with tramadol and therefore is ruled out for use of Suboxone. The patient has been euthymic with bright affect. She denies passive wish. She has been safe and in behavioral control. She reports desire to be discharged from hospital. Her is present at the time of discharge and agrees with discharge plan. MENTAL STATUS EXAM: Lianne is a 33-year-old white female, obese, well groomed, dressed in her own clothing. She is noted to have hirsutism. She participates fully in conversation. She is alert and oriented x3. Eye contact is good. Speech is soft, mumbled at times. Mood is euthymic with full range of affect. No abnormal psychomotor activity noted. Thought process is logical and goal directed. Thought content is negative for suicidal ideation, HI, or . She denies auditory or visual hallucinations. There are no perceptual disturbances noted. Insight and judgment are good. She appears to have a low average intelligence as evidenced by vocabulary and educational attainment. INSTRUCTIONS GIVEN TO THE PATIENT: A. Medications: 1. Depakote ER 1000 mg at bedtime. 2. Gabapentin 600 mg p.o. 3 times a day. 3. Nicotine gum. 4. Latuda 60 mg daily. 5. Tramadol 50 mg p.o. q.12 hours p.r.n. pain. 6. Venlafaxine 75 mg daily. The patient can continue on the following medications through primary care: 1. Voltaren EC. 2. Lunesta 3 mg q.h.s. 3. Lorazepam 0.5 mg p.o. b.i.d. 4. Ditropan 5 mg p.o. b.i.d. B. Diet is regular. C. Activity: Ambulation as tolerated. Tobacco cessation is declined by the patient. She was prescribed nicotine gum in case she changes her mind. There are no pending labs or diagnostic studies. HOSPITAL COURSE: Part A. Reason for admission: The patient presented to the emergency department with her due to suicidal ideation and desire to detox from opioid medications. Please see H and P by this health underwriter for full history. The patient was admitted to adult behavioral services unit on voluntary status. Part B. Psychiatric treatment rendered: The patient was admitted on voluntary status and placed on 15-minute checks for her safety. This was quickly decreased to 30-minute observation and she was allowed full unit privileges. We discussed options for discontinuing opioid pain medicines. She endorsed a trial of duloxetine and trazodone. She reported a history of tapering from Depakote with and experienced significant mood lability. The patient agreed to continue with stopping [place], but reported desire to continue with tramadol. We discussed recommendation to avoid Suboxone treatment at this time and to utilize lorazepam for anxiety. The patient did not exhibit physical withdrawal symptoms and endorsed psychological withdrawal. Over the course of admission, the patient reported improvement in pain and mood. She was calm and in behavioral control. She participated fully and reported improved sleep. Please note, we did decrease the venlafaxine down to 37.5 mg while she was here and due to Depakote availability, this was decreased to 1000 mg at bedtime. She utilized less benzodiazepines and was encouraged to do so sparingly after discharge. We did not change Latuda dose. This remains at 60 mg. The patient reported desire to continue with current outpatient treatment with Addie Camara and Dr. Cruz. She was also given information. The patient reported her Norplant control was removed approximately 2 to 3 months ago and she has since had some spotting. The initial hCG from the emergency department was 7. We repeated this and it was negative. Generally, the patient did very well in this setting and reported desire to return home to both her and their 3-year-old son. She does have a history of unspecified learning disorder and would benefit greatly from simple information in regards to non-opioid pain analgesia. ISABELLA RAUSCH [id number]/[facility] #: [id number] ALENA
== END 2018-05-06 14:00 | disposition home or self-care (01) | DRG 897 ==
LOC: ED 16:01 → BSU 19:57
PROVIDERS: ADMIT Psychiatry & Neurology Psychiatry; ATTEND Psychiatry & Neurology Psychiatry
DX: F11.23 Opioid dependence with withdrawal (principal); R45.851 Suicidal ideations; Z68.41 Body mass index [BMI] 40.0-44.9, adult; J45.909 Unspecified asthma, uncomplicated; F41.9 Anxiety disorder, unspecified; F31.9 Bipolar disorder, unspecified; F17.210 Nicotine dependence, cigarettes, uncomplicated; M54.9 Dorsalgia, unspecified; E66.9 Obesity, unspecified; L68.0 Hirsutism; M47.9 Spondylosis, unspecified; Z81.1 Family history of alcohol abuse and dependence; Z81.8 Family history of other mental and behavioral disorders; Z88.1 Allergy status to other antibiotic agents; Z88.0 Allergy status to penicillin
CPT/HCPCS: 36415; 80053; 80061; 80164; 80307; 80320; 80329; 81003; 83036; 84443; 84702; 85025; 99222; 99231; 99232; 99284; A9270-GY; G0480

== ENCOUNTER 2018-05-13 00:17 | Inpatient (IN) | payer MEDICARE, MEDICAID ==
[2018-05-13 01:00] LABS: ABS Basophils 0 10^3/ul (0-0.2); ABS Eosinophils 0.1 10^3/ul (0-0.6); ABS Lymphocytes 2.2 10^3/ul (1.0-4.8); ABS Monocytes 0.5 10^3/ul (0-0.8); ABS Neutrophils 5.2 10^3/ul (1.5-7.7); ABS Nucleated RBC 0 10^3/ul; Eosinophil % 1.1 %; Hematocrit 42 % (35-47); Hemoglobin 14.4 g/dl (12.0-16.0); Lymphocyte % 27.7 %; Mean Corpuscular HGB Conc 34 g/dl (31-36); Mean Corpuscular Hemoglobin 30 pg (27-31); Mean Corpuscular Volume 88 fL (80-97); Mean Platelet Volume 9.5 fL (7.4-10.4); Nucleated Red Blood Cells % 0.1; Platelet Count 251 10^3/ul (150-450); Red Blood Count 4.76 10^6/ul (4.00-5.40); Red Cell Distribution Width 14 % (10.5-15)
--- NOTE | 2018-05-13 01:12 | ED ---
Substance Abuse/Use - HPI Summary HPI Summary: Pt is a 33 y/o female brought in by EMS who presents to the ED s/p possible overdose. She was admitted to [facility] on 05/01/18 for SI and opioid detox request. Pt was released yesterday. As per , pt hasnt been acting normally since arriving home. As per EMS, pts Baclofen bottle was the only missing medication , and was filled 1 week ago. EMS gave 5 mg of Haldol. PMHx bipolar disorder, anxiety, and opiate abuse. Pt is a level 5 caveat due to her AMS. - History Of Current Complaint Chief Complaint: EDOverdose Stated Complaint: OVERDOSE Time Seen by Provider: 05/13/18 00:42 Hx Obtained From: EMS, Medical Records Hx From Patient Unobtainable Due To: Other - AMS Onset/Duration of Drug/ETOH Abuse: Days - Within past 24 hours Ingestion History: Type/Name Of Drug - Possible baclofen Overdose Characteristics: Other - Unknown Character: Lethargic Aggravating Factor(s): Nothing Alleviating Factor(s): Nothing Associated Signs And Symptoms: Altered Mental Status Related Hx: Prior Psych Admission - Allergies/Home Medications Allergies/Adverse Reactions: Allergies Allergy/AdvReac Type Severity Reaction Status Date / Time clindamycin Allergy Severe Vomiting Verified 05/01/18 20:47 amoxicillin Allergy Intermediate Rash Verified 05/01/18 20:47 clavulanic acid Allergy Intermediate Rash Verified 05/01/18 20:47 Penicillins Allergy Intermediate Rash Verified 05/01/18 20:47 PMH/Surg Hx/FS Hx/Imm Hx Respiratory History: Reports: Hx Asthma History: Reports: Other Problems/Disorders - overactive bladder Musculoskeletal History: Reports: Hx Arthritis, Hx Back Problems Sensory History: Reports: Hx Contacts or Glasses - does not have a pair of glasses with her Denies: Hx Hearing Aid Opthamlomology History: Reports: Hx Contacts or Glasses - does not have a pair of glasses with her Psychiatric History: Reports: Hx Anxiety, Hx Bipolar Disorder, Hx of Violent Episodes Against Others, Hx Substance Abuse - opiate Denies: Hx Eating Disorder - Surgical History Surgery Procedure, Year, and Place: Pt had right ankle surgery in 12/2016, following a fall that resulted in the fracture of her right ankle - Immunization History Immunizations Up to Date: Unable to Obtain/Confirm Infectious Disease History: Unable to Obtain/Confirm Infectious Disease History: Denies: Traveled Outside the [place] in Last 30 Days - Family History Known Family History: Positive: Other - Depression, anxiety, and suicide - Social History Alcohol Use: None Hx Substance Use: Yes Substance Use Type: Reports: Other - opiates Substance Use Comment - Amount & Last Used: opiates Hx Tobacco Use: Yes Smoking Status (MU): Current Every Day Smoker Review of Systems Negative: Fever Neurological: Other - AMS All Other Systems Reviewed And Are Negative: No Physical Exam - Summary Physical Exam Summary: Appearance: Well appearing, no pain distress, hirsute Skin: warm, dry, reflects adequate perfusion, surgical scar right ankle Head/face: normal Eyes: pupils conjugate, pupils constrict then immediately dilate ENT: mucous membranes moist Neck: supple, non-tender Respiratory: CTA, breath sounds present Cardiovascular: RRR, pulses symmetrical Abdomen: non-tender, soft Bowel Sounds: present Musculoskeletal: strength/ROM intact, deformity of right foot Neuro: sensory motor intact, eyes open to command, no verbal response GCS: 10 Triage Information Reviewed: Yes Vital Signs On Initial Exam: Initial Vitals Pulse Resp Pulse Ox 78 11 98 05/13/18 00:29 05/13/18 00:29 05/13/18 00:29 Vital Signs Reviewed: Yes Diagnostics - Vital Signs Vital Signs Temp Pulse Resp BP Pulse Ox 05/13/18 00:38 98.3 F 65 16 154/90 97 05/13/18 00:30 74 14 154/90 95 05/13/18 00:29 78 11 98 - Laboratory Lab Results: Lab Results 05/13/18 Range/Units 00:38 WBC 8.0 (3.5-10.8) 10^3/ul RBC 4.76 (4.00-5.40) 10^6/ul Hgb 14.4 (12.0-16.0) g/dl Hct 42 (35-47) % MCV 88 (80-97) fL MCH 30 (27-31) pg MCHC 34 (31-36) g/dl RDW 14 (10.5-15) % Plt Count 251 (150-450) 10^3/ul MPV 9.5 (7.4-10.4) fL Neut % (Auto) 64.3 % Lymph % (Auto) 27.7 % Ransom % (Auto) 6.3 % Eos % (Auto) 1.1 % Baso % (Auto) 0.6 % Absolute Neuts (auto) 5.2 (1.5-7.7) 10^3/ul Absolute Lymphs (auto) 2.2 (1.0-4.8) 10^3/ul Absolute Monos (auto) 0.5 (0-0.8) 10^3/ul Absolute Eos (auto) 0.1 (0-0.6) 10^3/ul Absolute Basos (auto) 0 (0-0.2) 10^3/ul Absolute Nucleated RBC 0 10^3/ul Nucleated RBC % 0.1 Result Diagrams: 05/13/18 00:38 05/13/18 00:38 Lab Statement: Any lab studies that have been ordered have been reviewed, and results considered in the medical decision making process. - EKG 00:42 Cardiac Rate: NL - 61 bpm EKG Rhythm: Sinus Rhythm ST Segment: Normal Summary of EKG Findings: Nl axis, nl intervals. Re-Evaluation - Re-Evaluation First Eval Re-Evaluation Time: 02:15 Change: Unchanged Comment: believes that pt took 30 tablets of 10 mg Baclofen throughout the afternoon. He noticed that she was acting weird and her pupils were dilated at 21:00. Second Eval Re-Evaluation Time: 04:55 Change: Improved Comment: Eyes are open, responds only to simplest commands, pupils dilated. Vitals remain stable, pt remains nonverbal. Course/Dx - Course Course Of Treatment: Nurse's notes reviewed. Patient with apparent overdose of up to 3010 mg baclofen tablets. This was unwitnessed and possibly occurred over the course of the afternoon at home. Patient was found to be altered by her approximately 9 PM. Ambulance was not called for several hours. Patient will open her eyes. Is nonverbal at this point. There is no evidence for trauma. Discussed the case with poison control who recommends close observation for 6 hours minimum. They recommended following the Depakote however the first level was nondetectable. The patient likely is not on this medication any longer. No other medications in the home or found to be emptied , or low. She was observed in the ER at the request of the hospitalist team for several hours without appreciable improvement. She will require telemetry monitoring in the hospital until sober. - Diagnoses Differential Diagnosis/HQI/PQRI: Positive: Depression, Metabolic Disorder, Suicidal Risk, Other - Overdose, trauma, mixed ingestion Provider Diagnoses: Medication overdose, Suicide attempt by drug ingestion - Physician Notifications Discussed Care Of Patient With: Darby Ivoyr Time Discussed With Above Provider: 01:16 Instructed by Provider To: Admit As Inpatient - ICU for observation. Spoke with poison control, who said a minimum of 6 hour observation until back to normal. If pt doesnt return to normal, do a brain CT and check labs for Depakote levels. Repeat Depakote check 2-4 hours apart. Baclofen overdoses can cause bradycardia, hypotension, seizure, coma, and brain . Only give benzos as an agitation treatment. At 1:[address] Ivory, who would like to wait 3 hours to admit the pt. At 4:55 Dr. Ivory accepts pt for admission. - Critical Care Time Critical Care Time: 30-74 min - CCT is EXCLUSIVE of separately billable procedures. Discharge - Sign-Out/Discharge Documenting (check all that apply): Patient Departure - Admit - Discharge Plan Condition: Guarded Disposition: ADMITTED TO [facility] - Billing Disposition and Condition Condition: GUARDED Disposition: Admitted to [facility] - Attestation Statements Document Initiated by Scribe: Yes Documenting Scribe: Tayla Tejeda Provider For Whom Marck is Documenting (Include Credential): Denys Cordero MD Scribe Attestation: Tayla Cohen, scribed for Denys Cordero MD on 05/13/18 at 2011. Scribe Documentation Reviewed: Yes Provider Attestation: The documentation as recorded by the Tayla rosado accurately reflects the service I personally performed and the decisions made by me, Denys Codrero MD Status of Scribe Document: Viewed
[2018-05-13] MEDS ORDERED: NS 0.9% 1000 ML* 1,000 ML IV SCH (01:15)
--- OUTSIDE RECORDS SUMMARY | 2018-05-13 01:16 | XMS REPORT ---
:1985 Author Organization [facility] Care Team Providers Name Role Phone Ernesto Juárez Unavailable Unavailable PROBLEMS Unknown Problems ALLERGIES No Information ENCOUNTERS Encounter Location Date Diagnosis [address] [address] Jun, [address] [address] Jun, [address] Apr, [id number] Apr, [id number] [address] Dec, [address] [address] Oct, [address] Oct, [id number] [address] Jun, [address] [address] May, [address] [address] Apr, IMMUNIZATIONS No Known Immunizations SOCIAL HISTORY Never Assessed REASON FOR REFERRAL FUNCTIONAL STATUS PLAN OF CARE VITAL SIGNS MEDICATIONS Unknown Medications PROCEDURES No Known procedures RESULTS No Results REASON FOR VISIT No show Insurance Providers [facility] Member Patient Patient Patient Patient Patient Subscriber Subscriber Subscriber Group Insurance Plan Plan Plan Plan ID Relationship Address Phone Name Date of ID Name Date of No Type Insurance Insurance Insurance Coverage to Subscriber Address Phone Name Dates Medicaid [phone] Medicaid self Juliette [id number] [facility] [address] [place] [address] Medicare National [phone] Medicare self Juliette [id number] PPS Government 41 P[employer] [facility] [address] [facility] [phone]
[2018-05-13 01:18] LABS: ALT 14 U/L (7-52); AST 16 U/L (13-39); Albumin/Globulin Ratio 1.5 (1-3); Alkaline Phosphatase 47 U/L (34-104); Anion Gap 9 mmol/L (2-11); BUN/Creatinine Ratio 18.6 (8-20); Blood Urea Nitrogen 13 mg/dL (6-24); CO2 Carbon Dioxide 22 mmol/L (22-32); Calcium 9.3 mg/dL (8.6-10.3); Chloride 108 mmol/L (101-111); EGFR Non-African American 96.4 (>60); Globulin 2.6 g/dL (2-4); Glucose 124 mg/dL (70-100); Potassium 3.4 mmol/L (3.5-5.0); Sodium 139 mmol/L (135-145); Total Protein 6.6 g/dL (6.4-8.9)
[2018-05-13 01:25] LABS: Acetaminophen < 15 mcg/mL; Alcohol < 10 mg/dL (<10); Salicylate < 2.50 mg/dL (<30)
[2018-05-13 01:26] LABS: HCG Pregnancy < 0.60 mIU/mL
[2018-05-13 01:40] LABS: TSH (Thyroid Stimulating Horm) 4.41 mcIU/mL (0.34-5.60)
[2018-05-13 01:45] LABS: Urine Appearance Clear; Urine Bacteria Absent (Absent); Urine Bilirubin Negative (Negative); Urine Blood Negative (Negative); Urine Color Yellow; Urine Glucose Negative (Negative); Urine Ketones Negative (Negative); Urine Nitrite Negative (Negative); Urine Protein 1+(30 mg/dL) (Negative); Urine Red Blood Cell Trace(0-2/hpf) (Absent); Urine Specific Gravity 1.025 (1.010-1.030); Urine Urobilinogen Negative (Negative); Urine White Blood Cell Absent (Absent)
[2018-05-13 02:00] LABS: Barbiturates Urine Screen None Detected (None Detect); Benzodiazepine Urine Screen Presumptive Positive (None Detect); Urine Cannabinoids Screen None Detected (None Detect)
[2018-05-13] MEDS ORDERED: Mouth Piece, Nicotine* 1 EACH CARTRIDGE INH ONE (02:00)
[2018-05-13] MEDS ORDERED: NS 0.9% 1000 ML* 1,000 ML IV ONE (05:35)
[2018-05-13] MEDS ORDERED: KCL 20 MEQ/100 ML IVPREMIX* 20 MEQ/100 ML BAG IV ONE (05:43)
--- NOTE | 2018-05-13 08:58 | HP ---
CC: Dr. Erica Lopez; Dr. Adame; Dr. Sullivan* HISTORY AND PHYSICAL: DATE OF ADMISSION: 05/13/18 PRIMARY CARE PROVIDER: Dr. Erica Lopez. CHIEF COMPLAINT: Altered mental status after overdose. HISTORY OF PRESENT ILLNESS: Lianne Zabala is a 33-year-old female with history of recent hospital stay from 05/01/18 to 05/06/18 for suicidal ideation and narcotic dependence, who also at that point was diagnosed with depression. The patient was discharged from mental health unit on 05/06/18, reported as her mental health at that point was controlled. The patient was brought in by family members after she was noted to be lethargic and minimally responsive. Family noted that all of the patient's pills that were prescribed to her are still in the pill containers apart from baclofen 30 tablets that were prescribed to her from a physician at [facility] a couple of days ago. Poison Control was informed about the patient's overdose and recommended initially a 6-hour observation in the emergency department. The patient had been at this point followed up over 5 hours in the ED and she continues to be nonverbal and altered. She is going to be admitted to the telemetry floor with a diagnosis of baclofen overdose. With the patient being nonverbal, I am unable to get any significant medical history apart from the one mentioned in Dr. Sullivan's history and physical from . PAST MEDICAL HISTORY: 1. History of depression. 2. History of suicide ideation as mentioned above. 3. History of opiate dependence in the past. 4. History of asthma. 5. History of arthritis. 6. History of ankle fracture in the past. 7. History of degenerative joint disease. 8. History of hirsutism. 9. Status post in the past. 10. Ankle fracture ORIF. MEDICATIONS: At home, unknown. From the patient's mental health discharge on 05/06/18, the patient was supposed to be on: 1. Depakote ER 1000 mg at bedtime. 2. Gabapentin 600 mg p.o. 3 times a day. 3. Nicotine gum. 4. Latuda 60 mg daily. 5. Ultram 50 mg every 12 hours p.r.n. 6. Effexor 75 mg daily. 7. Voltaren gel on a p.r.n. basis. 8. Lunesta 3 mg nightly. 9. Lorazepam 0.5 mg p.o. b.i.d. 10. Ditropan 5 mg b.i.d. ALLERGIES: Per medical records include CLINDAMYCIN, AMOXICILLIN, AUGMENTIN, AND PENICILLIN. FAMILY HISTORY: Notable for schizophrenia, depression, and suicidal ideation on mother's side. SOCIAL HISTORY: As per the patient's present in the room, the patient is on disability. There is no history of tobacco, alcohol or drug use. History of prescription drug abuse in the past is noted. REVIEW OF SYSTEMS: Unobtainable from the patient. From the patient's family members present in the room, which is the patient's sister and the patient's , the patient was noted not to be back to normal after her discharge on 05/06/18 from mental health unit. They noted that the patient was getting agitated occasionally and complained of both physical and an emotional pain. Nevertheless, she did not voice suicidal ideation to the family for the past several days. PHYSICAL EXAMINATION GENERAL: The patient is a 33-year-old obese female, who is lying in bed, in no acute distress. The patient responds to voice, opens her eyes, but does not follow any other commands. She is nonverbal. VITAL SIGNS: Blood pressure 152/103, heart rate of 83 and regular, respiratory rate 14, oxygen saturation 98% on room air, temperature of 98.3. HEENT: Head atraumatic and normocephalic. Eyes: Pupils are equal and reactive to light and accommodation. Oropharynx: The patient did not open her mouth for me when she was asked to do so. NECK: Supple. No JVD. No bruits bilaterally. RESPIRATORY: Clear to auscultation bilaterally. CARDIOVASCULAR: Regular rate and rhythm. No murmurs. ABDOMEN: Soft, nontender. Bowel sounds present in all 4 quadrants EXTREMITIES: There is no edema. Pulses +2 bilaterally. No clubbing or cyanosis. SKIN: On evaluation of the skin, no ecchymotic areas or rashes noted. NEURO EVALUATION: The patient moves all 4 extremities with equal strength. Her face is symmetric. More detail on neuro evaluation is impossible due to the patient being not cooperative with evaluation. DIAGNOSTIC STUDIES/LAB DATA: Laboratory data: White blood cell count of 8.0, hemoglobin of 14.4, hematocrit of 42, and platelets of 251. Sodium of 139, potassium 3.4, carbon dioxide 22, BUN 13, creatinine of 0.7. Liver function tests are unremarkable. Random glucose level of 124, TSH of 4.4. The patient's urine drug screen was positive for benzodiazepines. Serum alcohol , valproic acid, acetaminophen, and salicylates were below detectable. The patient's EKG shows normal sinus rhythm with a heart rate of 61 beats per minute with no ST changes. ASSESSMENT AND PLAN: 1. Baclofen overdose. At this point, the patient appears sedated, but otherwise with no neurologic deficit. At this point, the patient is going to be placed on overnight observation, on personnel monitor bed with one-to-one observation due to her history of suicidal ideation in the past and current overdose. Once she is verbal and more responsive and following commands, she is going to undergo mental health evaluation. 2. For DVT prophylaxis, the patient is in low risk and once she is more awake, ambulation is going to be encouraged. 3. For her hypokalemia, the patient is going to be placed intravenous potassium. 4. The patient's code status is full as per the patient's sister and presented in the room. Unfortunately, the patient herself is not able to name her surrogate, but patient identified her as the surrogate in the medical records. TIME SPENT: Please note that approximately 55 minutes was spent on evaluation of this patient, more than half of that time was spent face to face in the patient's room evaluating the patient and talking with the patient's family. [id number]/[facility] #: [id number] MTDD
--- NOTE | 2018-05-13 13:25 | PN ---
Hospitalist Progress Note Date of Service: 05/13/18 HOSPITALIST ADDENDUM Mrs Zabala is a 33yo F with PMH of morbid obesity, depression, admitted to [facility] from 05/01 to 05/06/18 due to suicidal ideation and narcotic dependence. Presented with probable Baclofen OD. She is alert and awake now, Poison control has closed her case and she's medically stable to transfer for [facility]. Awaiting Psychiatry evaluation.
[2018-05-13] MEDS: LORazepam TAB(*) 0.5 MG PO PRN ×2 (14:06→22:09)
[2018-05-13] MEDS ORDERED: Mouth Piece, Nicotine* 1 EACH CARTRIDGE ONE (14:54)
[2018-05-13] MEDS: Nicotine Inhaler* 10 MG AMP INH PRN ×3 (14:58→22:41)
[2018-05-13] MEDS: traMADol TAB* 50 MG PO PRN (15:46)
[2018-05-13] MEDS: Nicotine GUM* 2 MG PO PRN (16:16)
[2018-05-13] MEDS: Lurasidone(*) 60 MG TAB PO SCH (16:16)
[2018-05-13] MEDS: Diclofenac Sodium EC TAB* 25 MG PO PRN ×2 (16:16→21:18)
[2018-05-13] MEDS: Divalproex ER TAB(*) 500 MG PO SCH (21:13)
[2018-05-13] MEDS: Gabapentin CAP(*) 300 MG PO SCH (21:14)
[2018-05-13] MEDS: Oxybutynin TAB* 5 MG PO SCH (21:15)
[2018-05-14] MEDS: Nicotine GUM* 2 MG PO PRN ×2 (00:28→17:57)
[2018-05-14] MEDS: Acetaminophen TAB* 325 MG PO PRN ×2 (01:07→23:50)
[2018-05-14] MEDS: Lurasidone(*) 60 MG TAB PO SCH (07:49)
[2018-05-14] MEDS: LORazepam TAB(*) 0.5 MG PO PRN ×2 (07:49→16:04)
[2018-05-14] MEDS: Nicotine Inhaler* 10 MG AMP INH PRN ×5 (07:49→22:27)
[2018-05-14] MEDS: Gabapentin CAP(*) 300 MG PO SCH ×3 (07:49→20:13)
[2018-05-14] MEDS: traMADol TAB* 50 MG PO PRN ×2 (07:50→20:11)
[2018-05-14] MEDS: Oxybutynin TAB* 5 MG PO SCH ×2 (07:50→20:14)
[2018-05-14] MEDS: Venlafaxine EXT RELEASE CAP* 75 MG PO SCH (07:50)
[2018-05-14] MEDS: Diclofenac Sodium EC TAB* 25 MG PO PRN (13:45)
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
[2018-05-14] MEDS: Divalproex ER TAB(*) 500 MG PO SCH (20:12)
--- NOTE | 2018-05-14 20:51 | DS ---
CC: Dr. Erica Lopez * DISCHARGE SUMMARY: DATE OF ADMISSION: 05/13/18 DATE OF DISCHARGE: 05/14/18 PRIMARY CARE PROVIDER: Dr. Erica Lopez. DISCHARGE DIAGNOSIS: Baclofen overdose. SECONDARY DIAGNOSES: 1. Opioid dependence. 2. Bipolar disorder. 3. Anxiety disorder. 4. Morbid obesity with a BMI of 47.5. MEDICATIONS AT THE TIME OF TRANSFER: 1. Acetaminophen 650 mg p.o. q.4 hours p.r.n. pain or fever. 2. Diclofenac 50 mg p.o. t.i.d. as needed for pain. 3. Depakote ER 1000 mg p.o. at bedtime. 4. Lunesta 3 mg p.o. at bedtime. 5. Gabapentin 600 mg p.o. t.i.d. 6. Lorazepam 0.5 mg p.o. b.i.d. as needed for anxiety. 7. Latuda 60 mg p.o. daily. 8. Nicotine inhaler 10 mg inhaled q.2 hours as needed for cravings. 9. Oxybutynin 5 mg p.o. b.i.d. 10. Tramadol 50 mg p.o. q.12 hours p.r.n. pain. 11. Effexor XR 75 mg p.o. daily. HOSPITAL COURSE: Mrs. Zabala is a 33-year-old lady with a past medical history as stated above who was admitted to [facility] from 05/01/18 to 05/06/18. At that point, the patient had suicidal ideation and also wanted to discontinue hydrocodone. She returned to the emergency room on 05/13/18 after being found lethargic by family and the impression was that she had taken baclofen. Poison Control was contacted and all the recommendations were followed. The patient was admitted for further evaluation and now that her sensorium is clear, she states that she took 10 tablets of baclofen because she wanted the "pain to go away," but she did not think she could of an overdose with the amount of pills she took. The patient was seen in consultation by Mental Health and they are in agreement that she would benefit from further management in the mental health unit. The patient is medically stable for discharge at this time. PHYSICAL EXAMINATION: Vital Signs: Temperature 98.8, heart rate is 85, respiratory rate is 16, oxygen saturation 96% on room air, blood pressure is 149 /89. General: The patient is a morbidly obese lady, sitting up in bed, in no acute distress. CVS: Normal S1, S2. Regular rate and rhythm. Chest: Breath sounds present bilaterally with no added sounds. Neuro: She is alert and oriented x3. Able to move all 4 extremities. DIET: Regular diet. ACTIVITIES: As tolerated. DISPOSITION: To mental health unit. STATUS WHILE IN THE HOSPITAL: Observation. Please keep in mind that this is a summarized version of this patient's hospital stay. If you need more information, please feel free to call me at . TIME SPENT: Approximately 40 minutes were spent to complete this discharge. [id number]/CPS #: [id number] ALENA
[2018-05-14] MEDS ORDERED: diPHENhydraMINE PO* 25 MG ONE (23:15)
[2018-05-14] MEDS ORDERED: diPHENhydraMINE PO* 25 MG PO ONE (23:30)
[2018-05-15] MEDS: Nicotine Inhaler* 10 MG AMP INH PRN ×6 (04:30→21:11)
[2018-05-15] MEDS: Nicotine GUM* 2 MG PO PRN ×2 (06:35→11:17)
[2018-05-15] MEDS: LORazepam TAB(*) 0.5 MG PO PRN ×2 (07:00→21:11)
[2018-05-15] MEDS: traMADol TAB* 50 MG PO PRN (08:39)
[2018-05-15] MEDS: Gabapentin CAP(*) 300 MG PO SCH ×3 (08:39→20:12)
[2018-05-15] MEDS: Venlafaxine EXT RELEASE CAP* 75 MG PO SCH (08:39)
[2018-05-15] MEDS: Oxybutynin TAB* 5 MG PO SCH ×2 (08:39→20:13)
[2018-05-15] MEDS: Lurasidone(*) 60 MG TAB PO SCH (08:40)
--- NOTE | 2018-05-15 13:54 | PN ---
Subjective - Subjective Service Type: 62381 Hosp care 25 min moderate complexity Subjective: Patient and her , Jeancarlos, met with proposal manager writer and Jillian Gan LMSW to discuss treatment planning. Patient reports difficulty with "emotional and physical pain." Jeancarlos reports Lianne tends to take her medications "until she is numb." He states that she tries to beg him for his pain medications but that he keeps them locked. Lianne states "I need rehab because I'm an addict." She agrees to discontinue tramadol and a PT consult. During the course of the conversation, patient is tearful at times. She endorses feeling disappointed that she cannot see her 3yo son today. Providers discussed importance of safety on the unit, as well as priority to focus on Lianne's recovery. Will assess appropriateness of child visitors on daily basis. Objective - Appearance Appearance: Obese Dysmorphic Features: Yes Hygiene: Normal Grooming: Well Kept - Behavior Psychomotor Activities: Normal Exhibits Abnormal Movement: No - Attitude and Relatedness Attitude and Relatedness: Cooperative Eye Contact: Good - Speech Quality: Unpressured Latencies: Normal Quantity: Appropriate - Mood Patient's Decription of Mood: "Upset" - Affect Observed Affect: Depressed Affect Consistent with: Dysphoria - Thought Process Patient's Thought Process: Circumstantial, Impoverished Thought Content: Yes Passive Wish, No Suicidal Planning, No Homicidal Ideation, No Paranoid Ideation - Sensorium Experiencing Hallucinations: No, Sensorium is Clear Type of Hallucinations: Visual: No, Auditory: No, Command: No - Level of Consciousness Level of Consciousness: Alert Orientation: Yes Intact, Yes Orientated to Time, Yes Orientated to Place, Yes Orientated to Person - Impulse Control Impulse Control: Poor - Insight and Judgement Insight and Judgement: Poor - Group Participation Particating in Group Activities: Yes - Medication Management Medication Management Adherence: Yes Assessment - Assessment Merits Inpatient Hospitalization: For Immediate Safety, For Stabilization Inpatient DSM-V Dx: F31.30 Clinical Impression: 33yo wf with history of bipolar d/o who presented to ED after intentional overdose within one week of discharge from [facility]. She reports overusing medications to numb emotional and physical pain. Patient merits hospitalization for immediate safety and stabilization. Plan - Plan Treatment Plan: Name: LIANNE MARTINEZ Birthdate: 1985 [id number] continue acute intensive psychiatric treatment. may decrease to q30min and allow staff pass. DC tramadol. utilize cyclobenzaprine prn back pain. add lunesta per pretreatment regimen and multiple failed trials of formulary medications. obtain PT consult for back pain. Continued Medication Management: Different Medication Medications: Current Medications Acetaminophen (Tylenol Tab*) 650 mg PO Q4H PRN PRN Reason: FEVER/PAIN Last Admin: 05/14/18 23:50 Dose: 650 mg Cyclobenzaprine HCl (Flexeril Tab*) 10 mg PO BID PRN PRN Reason: PAIN Diclofenac Sodium (Voltaren Ec Tab*) 50 mg PO TID PRN PRN Reason: PAIN Last Admin: 05/14/18 13:45 Dose: 50 mg Divalproex Sodium (Depakote Er Tab(*)) 1,000 mg PO BEDTIME [facility] Last Admin: 05/14/18 20:12 Dose: 1,000 mg Eszopiclone (Lunesta (Nf)) 3 mg PO BEDTIME PRN; Protocol PRN Reason: INSOMNIA Gabapentin (Neurontin Cap(*)) 600 mg PO TID [facility] Last Admin: 05/15/18 08:39 Dose: 600 mg Lorazepam (Ativan Tab(*)) 0.5 mg PO BID PRN PRN Reason: ANXIETY Last Admin: 05/15/18 07:00 Dose: 0.5 mg Lurasidone HCl (Latuda) 60 mg PO DAILY [facility] Last Admin: 05/15/18 08:40 Dose: 60 mg Nicotine (Nicotine Inhaler*) 10 mg INH Q2H PRN PRN Reason: CRAVING Last Admin: 05/15/18 10:58 Dose: 10 mg Nicotine (Nicotine Patch 21 Mg/24 Hr*) 1 patch TRANSDERM DAILY [facility] Nicotine Polacrilex (Nicotine Gum*) 2 mg PO Q2H PRN PRN Reason: CRAVING Last Admin: 05/15/18 11:17 Dose: 2 mg Oxybutynin Chloride (Ditropan Tab*) 5 mg PO BID [facility] Last Admin: 05/15/18 08:39 Dose: 5 mg Pharmacy Profile Note (Nicotine Patch Removal Note*) 1 note FOLLOW UP 2100 [facility] Venlafaxine HCl (Effexor Xr Cap*) 37.5 mg PO DAILY [facility] - Discharge Plan Discharge Plan: Inpatient Hospitalization
[2018-05-15] MEDS: Nicotine PATCH 21 MG/24 HR* PATCH TRANSDERM SCH (15:32)
[2018-05-15] MEDS: Zolpidem TAB* 10 MG PO PRN (20:13)
[2018-05-15] MEDS: Nicotine Patch Removal NOTE FOLLOW UP SCH (20:19)
[2018-05-15 20:59] LABS: BUN/Creatinine Ratio 24.2 (8-20); Calcium 9.7 mg/dL (8.6-10.3); EGFR Non-African American 71.2 (>60); Potassium 4.4 mmol/L (3.5-5.0)
[2018-05-15] MEDS: Divalproex ER TAB(*) 500 MG PO SCH (21:19)
[2018-05-15] MEDS: Divalproex ER TAB(*) 250 MG PO SCH (21:19)
[2018-05-16] MEDS: Acetaminophen TAB* 325 MG PO PRN ×2 (02:23→08:32)
[2018-05-16] MEDS: Gabapentin CAP(*) 300 MG PO SCH ×3 (08:32→20:48)
[2018-05-16] MEDS: Venlafaxine EXT RELEASE CAP* 37.5 MG PO SCH (08:32)
[2018-05-16] MEDS: Lurasidone(*) 60 MG TAB PO SCH (08:33)
[2018-05-16] MEDS: Nicotine PATCH 21 MG/24 HR* PATCH TRANSDERM SCH (08:33)
[2018-05-16] MEDS: Oxybutynin TAB* 5 MG PO SCH ×2 (08:33→20:47)
[2018-05-16] MEDS: Nicotine GUM* 2 MG PO PRN (08:36)
[2018-05-16] MEDS: Nicotine Inhaler* 10 MG AMP INH PRN ×4 (10:08→20:46)
[2018-05-16] MEDS: LORazepam TAB(*) 0.5 MG PO PRN ×2 (10:08→20:51)
[2018-05-16] MEDS: Cyclobenzaprine TAB* 10 MG PO PRN ×2 (14:03→20:47)
--- NOTE | 2018-05-16 14:16 | PN ---
Subjective - Subjective Date of Service: 05/16/18 Service Type: 97018 Hosp care 15 min low complexity Subjective: patient reports mildly depressed mood with some anxiousness. She endorses psychological craving for tramadol. She reports poor sleep due to back pain. Notified of availability of flexeril and pt reports efficacy with this in the past. She requests ibuprofen. depakote level 25.0 on 1000mg ER dose. she awaiting PT consult. Objective - Appearance Appearance: Obese Dysmorphic Features: Yes Hygiene: Normal Grooming: Fairly Well Kept - Behavior Psychomotor Activities: Normal Exhibits Abnormal Movement: No - Attitude and Relatedness Attitude and Relatedness: Cooperative Eye Contact: Good - Speech Quality: Unpressured Latencies: Normal Quantity: Appropriate - Mood Patient's Decription of Mood: "Anxious" - Affect Observed Affect: Depressed Affect Consistent with: Dysphoria - Thought Process Patient's Thought Process: Coherent, Goal Directed Thought Content: No Passive Wish, No Suicidal Planning, No Homicidal Ideation, No Paranoid Ideation - Sensorium Experiencing Hallucinations: No, Sensorium is Clear Type of Hallucinations: Visual: No, Auditory: No, Command: No - Level of Consciousness Level of Consciousness: Alert Orientation: Yes Intact, Yes Orientated to Time, Yes Orientated to Place, Yes Orientated to Person - Impulse Control Impulse Control: Tenuous - Insight and Judgement Insight and Judgement: Poor - Group Participation Particating in Group Activities: Yes - Medication Management Medication Management Adherence: Yes Assessment - Assessment Merits Inpatient Hospitalization: For Immediate Safety, For Stabilization Inpatient DSM-V Dx: F31.30 Clinical Impression: 33yo wf with history of bipolar d/o who presented to ED after intentional overdose within one week of discharge from [facility]. She reports overusing medications to numb emotional and physical pain. Patient merits hospitalization for immediate safety and stabilization. Plan - Plan Treatment Plan: Name: GENNARO MARTINEZ Birthdate: 1985 [id number] continue acute intensive psychiatric treatment. may decrease to q30min and allow staff pass. continue current medications. obtain PT consult for back pain. Continued Medication Management: Different Medication Medications: Current Medications Acetaminophen (Tylenol Tab*) 650 mg PO Q4H PRN PRN Reason: FEVER/PAIN Last Admin: 05/16/18 08:32 Dose: 650 mg Cyclobenzaprine HCl (Flexeril Tab*) 10 mg PO BID PRN PRN Reason: PAIN Last Admin: 05/16/18 14:03 Dose: 10 mg Diclofenac Sodium (Voltaren Ec Tab*) 50 mg PO TID PRN PRN Reason: PAIN Last Admin: 05/14/18 13:45 Dose: 50 mg Divalproex Sodium (Depakote Er Tab(*)) 1,000 mg PO BEDTIME [facility] Last Admin: 05/15/18 21:19 Dose: 1,000 mg Divalproex Sodium (Depakote Er Tab(*)) 250 mg PO BEDTIME [facility] Last Admin: 05/15/18 21:19 Dose: 250 mg Gabapentin (Neurontin Cap(*)) 600 mg PO TID [facility] Last Admin: 05/16/18 13:02 Dose: 600 mg Ibuprofen (Motrin Tab*) 400 mg PO Q6H PRN PRN Reason: PAIN Lorazepam (Ativan Tab(*)) 0.5 mg PO BID PRN PRN Reason: ANXIETY Last Admin: 05/16/18 10:08 Dose: 0.5 mg Lurasidone HCl (Latuda) 60 mg PO DAILY [facility] Last Admin: 05/16/18 08:33 Dose: 60 mg Nicotine (Nicotine Inhaler*) 10 mg INH Q2H PRN PRN Reason: CRAVING Last Admin: 05/16/18 12:55 Dose: 10 mg Nicotine (Nicotine Patch 21 Mg/24 Hr*) 1 patch TRANSDERM DAILY [facility] Last Admin: 05/16/18 08:33 Dose: 1 patch Nicotine Polacrilex (Nicotine Gum*) 2 mg PO Q2H PRN PRN Reason: CRAVING Last Admin: 05/16/18 08:36 Dose: 2 mg Oxybutynin Chloride (Ditropan Tab*) 5 mg PO BID [facility] Last Admin: 05/16/18 08:33 Dose: 5 mg Pharmacy Profile Note (Nicotine Patch Removal Note*) 1 note FOLLOW UP 2100 [facility] Last Admin: 05/15/18 20:19 Dose: 1 note Venlafaxine HCl (Effexor Xr Cap*) 37.5 mg PO DAILY [facility] Last Admin: 05/16/18 08:32 Dose: 37.5 mg Zolpidem Tartrate (Ambien Tab*) 10 mg PO BEDTIME PRN; Protocol PRN Reason: INSOMNIA Last Admin: 05/15/18 20:13 Dose: 10 mg - Discharge Plan Discharge Plan: Inpatient Hospitalization
[2018-05-16] MEDS: Divalproex ER TAB(*) 500 MG PO SCH (20:48)
[2018-05-16] MEDS: Divalproex ER TAB(*) 250 MG PO SCH (20:48)
[2018-05-16] MEDS: Zolpidem TAB* 10 MG PO PRN (20:51)
[2018-05-16] MEDS: Ibuprofen TAB* 400 MG PO PRN (21:53)
[2018-05-16] MEDS: Nicotine Patch Removal NOTE FOLLOW UP SCH (23:12)
[2018-05-17] MEDS: Nicotine Inhaler* 10 MG AMP INH PRN ×4 (07:16→18:17)
[2018-05-17] MEDS: Venlafaxine EXT RELEASE CAP* 37.5 MG PO SCH (08:55)
[2018-05-17] MEDS: LORazepam TAB(*) 0.5 MG PO PRN ×2 (08:56→20:24)
[2018-05-17] MEDS: Lurasidone(*) 60 MG TAB PO SCH (08:56)
[2018-05-17] MEDS: Gabapentin CAP(*) 300 MG PO SCH ×3 (08:56→20:17)
[2018-05-17] MEDS: Cyclobenzaprine TAB* 10 MG PO PRN (08:56)
[2018-05-17] MEDS: Oxybutynin TAB* 5 MG PO SCH ×2 (08:56→20:19)
[2018-05-17] MEDS: Nicotine PATCH 21 MG/24 HR* PATCH TRANSDERM SCH (08:57)
[2018-05-17] MEDS ORDERED: Carisoprodol TAB* 350 MG ONE (11:51)
[2018-05-17] MEDS: Carisoprodol TAB* 350 MG PO PRN ×2 (11:51→17:39)
--- NOTE | 2018-05-17 15:45 | PN ---
Subjective - Subjective Date of Service: 05/17/18 Service Type: 59892 Hosp care 15 min low complexity Subjective: patient reports having a difficult phone call with her . she states she is upset that he will need to take their son to a family member while he visits her; this particular [id number] has told pt she may not have contact with daughters "until she goes to rehab." patient reports no efficacy with flexeril and requests soma. she also requests that tramadol be tapered. ticket writer agrees to change muscle relaxant and encourages patient to perform exercises as suggested by PT. Objective - Appearance Appearance: Obese Dysmorphic Features: Yes Hygiene: Normal Grooming: Disheveled - Behavior Psychomotor Activities: Normal Exhibits Abnormal Movement: No - Attitude and Relatedness Attitude and Relatedness: Cooperative Eye Contact: Fair - Speech Quality: Unpressured Latencies: Normal Quantity: Appropriate - Mood Patient's Decription of Mood: "Upset" - Affect Observed Affect: Depressed Affect Consistent with: Dysphoria - Thought Process Patient's Thought Process: Circumstantial, Impoverished Thought Content: No Passive Wish, No Suicidal Planning, No Homicidal Ideation, No Paranoid Ideation - Sensorium Experiencing Hallucinations: No, Sensorium is Clear Type of Hallucinations: Visual: No, Auditory: No, Command: No - Level of Consciousness Level of Consciousness: Alert Orientation: Yes Intact, Yes Orientated to Time, Yes Orientated to Place, Yes Orientated to Person - Impulse Control Impulse Control: Poor - Insight and Judgement Insight and Judgement: Poor - Group Participation Particating in Group Activities: Yes - Medication Management Medication Management Adherence: Yes Assessment - Assessment Merits Inpatient Hospitalization: For Immediate Safety, For Stabilization Inpatient DSM-V Dx: F31.30 Clinical Impression: 33yo wf with history of bipolar d/o who presented to ED after intentional overdose within one week of discharge from [facility]. She reports overusing medications to numb emotional and physical pain. Patient merits hospitalization for immediate safety and stabilization. Plan - Plan Treatment Plan: Name: GENNARO MARTINEZ Birthdate: 1985 [id number] continue acute intensive psychiatric treatment. may decrease to q30min and allow staff pass. DC cyclobenzaprine, trial soma. Start taper of lorazepam. decrease venlafaxine to QOD. child may visit with adult visitor per RN discretion Continued Medication Management: Different Medication Medications: Current Medications Acetaminophen (Tylenol Tab*) 650 mg PO Q4H PRN PRN Reason: FEVER/PAIN Last Admin: 05/16/18 08:32 Dose: 650 mg Carisoprodol (Soma Tab*) 350 mg PO BID PRN PRN Reason: PAIN Last Admin: 05/17/18 11:51 Dose: 350 mg Diclofenac Sodium (Voltaren Ec Tab*) 50 mg PO TID PRN PRN Reason: PAIN Last Admin: 05/14/18 13:45 Dose: 50 mg Divalproex Sodium (Depakote Er Tab(*)) 1,000 mg PO BEDTIME [facility] Last Admin: 05/16/18 20:48 Dose: 1,000 mg Divalproex Sodium (Depakote Er Tab(*)) 250 mg PO BEDTIME [facility] Last Admin: 05/16/18 20:48 Dose: 250 mg Gabapentin (Neurontin Cap(*)) 600 mg PO TID [facility] Last Admin: 05/17/18 08:56 Dose: 600 mg Ibuprofen (Motrin Tab*) 400 mg PO Q6H PRN PRN Reason: PAIN Last Admin: 05/16/18 21:53 Dose: 400 mg Lorazepam (Ativan Tab(*)) 0.25 mg PO BID PRN PRN Reason: ANXIETY Lurasidone HCl (Latuda) 60 mg PO DAILY [facility] Last Admin: 05/17/18 08:56 Dose: 60 mg Nicotine (Nicotine Inhaler*) 10 mg INH Q2H PRN PRN Reason: CRAVING Last Admin: 05/17/18 10:01 Dose: 10 mg Nicotine (Nicotine Patch 21 Mg/24 Hr*) 1 patch TRANSDERM DAILY [facility] Last Admin: 05/17/18 08:57 Dose: 1 patch Nicotine Polacrilex (Nicotine Gum*) 2 mg PO Q2H PRN PRN Reason: CRAVING Last Admin: 05/16/18 08:36 Dose: 2 mg Oxybutynin Chloride (Ditropan Tab*) 5 mg PO BID [facility] Last Admin: 05/17/18 08:56 Dose: 5 mg Pharmacy Profile Note (Nicotine Patch Removal Note*) 1 note FOLLOW UP 2100 [facility] Last Admin: 05/16/18 23:12 Dose: 1 note Venlafaxine HCl (Effexor Xr Cap*) 37.5 mg PO DAILY [facility] Last Admin: 05/17/18 08:55 Dose: 37.5 mg Zolpidem Tartrate (Ambien Tab*) 10 mg PO BEDTIME PRN; Protocol PRN Reason: INSOMNIA Last Admin: 05/16/18 20:51 Dose: 10 mg - Discharge Plan Discharge Plan: Inpatient Hospitalization
[2018-05-17] MEDS: Nicotine GUM* 2 MG PO PRN (18:17)
[2018-05-17] MEDS: Divalproex ER TAB(*) 500 MG PO SCH (20:15)
[2018-05-17] MEDS: Divalproex ER TAB(*) 250 MG PO SCH (20:15)
[2018-05-17] MEDS: Nicotine Patch Removal NOTE FOLLOW UP SCH (20:17)
[2018-05-17] MEDS: Ibuprofen TAB* 400 MG PO PRN (20:28)
[2018-05-17] MEDS: Zolpidem TAB* 10 MG PO PRN (20:40)
[2018-05-18] MEDS: Nicotine Inhaler* 10 MG AMP INH PRN ×4 (06:26→20:38)
[2018-05-18] MEDS: Nicotine PATCH 21 MG/24 HR* PATCH TRANSDERM SCH (08:37)
[2018-05-18] MEDS: Gabapentin CAP(*) 300 MG PO SCH ×3 (08:39→20:29)
[2018-05-18] MEDS: Ibuprofen TAB* 400 MG PO PRN ×2 (08:44→13:52)
[2018-05-18] MEDS: Lurasidone(*) 60 MG TAB PO SCH (08:44)
[2018-05-18] MEDS: Oxybutynin TAB* 5 MG PO SCH ×2 (09:47→21:05)
[2018-05-18] MEDS: Carisoprodol TAB* 350 MG PO PRN ×2 (17:49→20:35)
[2018-05-18] MEDS: Divalproex ER TAB(*) 250 MG PO SCH (20:28)
[2018-05-18] MEDS: Divalproex ER TAB(*) 500 MG PO SCH (20:29)
[2018-05-18] MEDS: LORazepam TAB(*) 0.5 MG PO PRN (20:29)
[2018-05-18] MEDS: Zolpidem TAB* 10 MG PO PRN (20:35)
[2018-05-18] MEDS: Nicotine Patch Removal NOTE FOLLOW UP SCH (20:37)
[2018-05-19] MEDS: Nicotine Inhaler* 10 MG AMP INH PRN ×6 (01:30→20:25)
[2018-05-19] MEDS: Ibuprofen TAB* 400 MG PO PRN ×3 (01:30→17:48)
[2018-05-19] MEDS: Nicotine PATCH 21 MG/24 HR* PATCH TRANSDERM SCH (08:43)
[2018-05-19] MEDS: Venlafaxine EXT RELEASE CAP* 37.5 MG PO SCH (08:44)
[2018-05-19] MEDS: Carisoprodol TAB* 350 MG PO PRN ×2 (08:44→15:39)
[2018-05-19] MEDS: Oxybutynin TAB* 5 MG PO SCH ×2 (08:45→20:21)
[2018-05-19] MEDS: Gabapentin CAP(*) 300 MG PO SCH ×3 (08:45→20:22)
[2018-05-19] MEDS: Nicotine GUM* 2 MG PO PRN (08:46)
[2018-05-19] MEDS: Lurasidone(*) 60 MG TAB PO SCH (08:46)
[2018-05-19] MEDS: LORazepam TAB(*) 0.5 MG PO PRN ×2 (10:47→18:03)
--- NOTE | 2018-05-19 16:33 | PN ---
Subjective - Subjective Date of Service: 05/19/18 Service Type: 92081 Hosp care 15 min low complexity Subjective: Juliette is fine on the unit appropriately interacting with peers and staffs. Says " not bad " when asked how was she doing. Convinced that she doesn't need to go to rehab as she learned her lesson. Advised to follow her Treatment Team's recommendations. Obviously she needs to go for an intensive outpatient rehab to the least given the intensity of her dependence. Denies SI/HI, hallucinations or delusions today. Objective - Appearance Appearance: Healthy Appearing, Obese Dysmorphic Features: No Hygiene: Normal Grooming: Fairly Well Kept - Behavior Psychomotor Activities: Normal Exhibits Abnormal Movement: No - Attitude and Relatedness Attitude and Relatedness: Appropriate Eye Contact: Good - Speech Quality: Unpressured Latencies: Normal Quantity: Appropriate - Mood Patient's Decription of Mood: "Fine" - Affect Observed Affect: Non-labile - Thought Process Patient's Thought Process: Coherent, Goal Directed Thought Content: No Passive Wish, No Suicidal Planning, No Homicidal Ideation, No Paranoid Ideation - Sensorium Experiencing Hallucinations: No, Sensorium is Clear Type of Hallucinations: Visual: No, Auditory: No, Command: No - Level of Consciousness Level of Consciousness: Alert Orientation: Yes Intact, Yes Orientated to Time, Yes Orientated to Place, Yes Orientated to Person - Impulse Control Impulse Control: Tenuous - Insight and Judgement Insight and Judgement: Poor - Group Participation Particating in Group Activities: Yes - Medication Management Medication Management Adherence: Yes Assessment - Assessment Merits Inpatient Hospitalization: Consolidate Improvements, Pending Safe DC Plan Inpatient DSM-V Dx: F31.30 Clinical Impression: 33yo wf with history of bipolar d/o who presented to ED after intentional overdose within one week of discharge from [facility]. She reports overusing medications to numb emotional and physical pain. Patient merits hospitalization for immediate safety and stabilization. Plan - Plan Treatment Plan: Name: GENNARO MARTINEZ Birthdate: 1985 [id number] continue acute intensive psychiatric treatment. may decrease to q30min and allow staff pass. DC cyclobenzaprine, trial soma. Start taper of lorazepam. decrease venlafaxine to QOD. child may visit with adult visitor per RN discretion Continued Medication Management: Continue Outpt Medication Medications: Current Medications Acetaminophen (Tylenol Tab*) 650 mg PO Q4H PRN PRN Reason: FEVER/PAIN Last Admin: 05/16/18 08:32 Dose: 650 mg Carisoprodol (Soma Tab*) 350 mg PO BID PRN PRN Reason: PAIN Last Admin: 05/19/18 15:39 Dose: 350 mg Diclofenac Sodium (Voltaren Ec Tab*) 50 mg PO TID PRN PRN Reason: PAIN Last Admin: 05/14/18 13:45 Dose: 50 mg Divalproex Sodium (Depakote Er Tab(*)) 1,000 mg PO BEDTIME [facility] Last Admin: 05/18/18 20:29 Dose: 1,000 mg Divalproex Sodium (Depakote Er Tab(*)) 250 mg PO BEDTIME [facility] Last Admin: 05/18/18 20:28 Dose: 250 mg Gabapentin (Neurontin Cap(*)) 600 mg PO TID [facility] Last Admin: 05/19/18 12:48 Dose: 600 mg Ibuprofen (Motrin Tab*) 400 mg PO Q6H PRN PRN Reason: PAIN Last Admin: 05/19/18 12:49 Dose: 400 mg Lorazepam (Ativan Tab(*)) 0.25 mg PO BID PRN PRN Reason: ANXIETY Last Admin: 05/19/18 10:47 Dose: 0.25 mg Lurasidone HCl (Latuda) 60 mg PO DAILY [facility] Last Admin: 05/19/18 08:46 Dose: 60 mg Nicotine (Nicotine Inhaler*) 10 mg INH Q2H PRN PRN Reason: CRAVING Last Admin: 05/19/18 15:39 Dose: 10 mg Nicotine (Nicotine Patch 21 Mg/24 Hr*) 1 patch TRANSDERM DAILY [facility] Last Admin: 05/19/18 08:43 Dose: 1 patch Nicotine Polacrilex (Nicotine Gum*) 2 mg PO Q2H PRN PRN Reason: CRAVING Last Admin: 05/19/18 08:46 Dose: 2 mg Oxybutynin Chloride (Ditropan Tab*) 5 mg PO BID [facility] Last Admin: 05/19/18 08:45 Dose: 5 mg Pharmacy Profile Note (Nicotine Patch Removal Note*) 1 note FOLLOW UP 2100 [facility] Last Admin: 05/18/18 20:37 Dose: 1 note Venlafaxine HCl (Effexor Xr Cap*) 37.5 mg PO EVERY OTHER DAY [facility] Last Admin: 05/19/18 08:44 Dose: 37.5 mg Zolpidem Tartrate (Ambien Tab*) 10 mg PO BEDTIME PRN; Protocol PRN Reason: INSOMNIA Last Admin: 05/18/18 20:35 Dose: 10 mg - Discharge Plan Discharge Plan: Drug/Alcohol Rehab
[2018-05-19] MEDS: Divalproex ER TAB(*) 500 MG PO SCH (20:21)
[2018-05-19] MEDS: Divalproex ER TAB(*) 250 MG PO SCH (20:21)
[2018-05-19] MEDS: Zolpidem TAB* 10 MG PO PRN (20:22)
[2018-05-19] MEDS: Nicotine Patch Removal NOTE FOLLOW UP SCH (21:17)
[2018-05-20] MEDS: Nicotine Inhaler* 10 MG AMP INH PRN ×5 (06:30→20:24)
[2018-05-20] MEDS: Carisoprodol TAB* 350 MG PO PRN ×2 (07:05→17:41)
[2018-05-20] MEDS: Nicotine PATCH 21 MG/24 HR* PATCH TRANSDERM SCH (08:38)
[2018-05-20] MEDS: Ibuprofen TAB* 400 MG PO PRN ×2 (08:38→10:18)
[2018-05-20] MEDS: Gabapentin CAP(*) 300 MG PO SCH ×3 (08:38→20:21)
[2018-05-20] MEDS: Lurasidone(*) 60 MG TAB PO SCH (08:38)
[2018-05-20] MEDS: Diclofenac Sodium EC TAB* 25 MG PO PRN ×3 (08:40→20:24)
[2018-05-20] MEDS: Oxybutynin TAB* 5 MG PO SCH ×2 (08:42→20:22)
[2018-05-20] MEDS: LORazepam TAB(*) 0.5 MG PO PRN ×2 (10:18→20:23)
--- NOTE | 2018-05-20 14:47 | PN ---
Subjective - Subjective Date of Service: 05/20/18 Service Type: [id number] Hosp care 15 min low complexity Subjective: Patient is dysphoric and tearful. She reports she is grieving the loss of her [id number] approx 2 years ago. We discuss the importance learning to identify emotions and no longer avoiding. Patient inquires about increase in medication, specifically gabapentin for pain. B[employer] Insulator encourages increase in non -pharmacological treatments, including PT back exercises and distraction techniques. Per staff, patient utilizes prn medications consistently. Objective - Appearance Appearance: Obese Dysmorphic Features: Yes Hygiene: Dirty Grooming: Disheveled - Behavior Psychomotor Activities: Normal Exhibits Abnormal Movement: No - Attitude and Relatedness Attitude and Relatedness: Cooperative - Speech Quality: Unpressured Latencies: Normal Quantity: Appropriate - Mood Patient's Decription of Mood: "depressed" - Affect Observed Affect: Depressed Affect Consistent with: Dysphoria - Thought Process Patient's Thought Process: Coherent, Circumstantial Thought Content: No Passive Wish, No Suicidal Planning, No Homicidal Ideation, No Paranoid Ideation - Sensorium Experiencing Hallucinations: No, Sensorium is Clear Type of Hallucinations: Visual: No, Auditory: No, Command: No - Level of Consciousness Level of Consciousness: Alert Orientation: Yes Intact, Yes Orientated to Time, Yes Orientated to Place, Yes Orientated to Person - Impulse Control Impulse Control: Poor - Insight and Judgement Insight and Judgement: Poor - Group Participation Particating in Group Activities: Yes - Medication Management Medication Management Adherence: Yes Assessment - Assessment Merits Inpatient Hospitalization: For Immediate Safety, For Stabilization, Consolidate Improvements, Pending Safe DC Plan Inpatient DSM-V Dx: F31.30 Clinical Impression: 33yo wf with history of bipolar d/o who presented to ED after intentional overdose within one week of discharge from [facility]. She reports overusing medications to numb emotional and physical pain. Patient merits hospitalization for immediate safety and stabilization. Plan - Plan Treatment Plan: Name: GENNARO MARTINEZ Birthdate: 1985 [id number] continue acute intensive psychiatric treatment. may decrease to q30min and allow staff pass. continue current medications, decrease timing of prn medications. obtain valproic acid level in am. child may visit with adult visitor per RN discretion Medications: Current Medications Acetaminophen (Tylenol Tab*) 650 mg PO Q4H PRN PRN Reason: FEVER/PAIN Last Admin: 05/16/18 08:32 Dose: 650 mg Carisoprodol (Soma Tab*) 350 mg PO BID PRN PRN Reason: PAIN Last Admin: 05/20/18 07:05 Dose: 350 mg Diclofenac Sodium (Voltaren Ec Tab*) 50 mg PO TID PRN PRN Reason: PAIN Last Admin: 05/20/18 08:40 Dose: 50 mg Divalproex Sodium (Depakote Er Tab(*)) 1,000 mg PO BEDTIME [facility] Last Admin: 05/19/18 20:21 Dose: 1,000 mg Divalproex Sodium (Depakote Er Tab(*)) 250 mg PO BEDTIME [facility] Last Admin: 05/19/18 20:21 Dose: 250 mg Gabapentin (Neurontin Cap(*)) 600 mg PO TID [facility] Last Admin: 05/20/18 13:13 Dose: 600 mg Ibuprofen (Motrin Tab*) 400 mg PO Q6H PRN PRN Reason: PAIN Last Admin: 05/20/18 10:18 Dose: 400 mg Lorazepam (Ativan Tab(*)) 0.25 mg PO BID PRN PRN Reason: ANXIETY Last Admin: 05/20/18 10:18 Dose: 0.25 mg Lurasidone HCl (Latuda) 60 mg PO DAILY [facility] Last Admin: 05/20/18 08:38 Dose: 60 mg Nicotine (Nicotine Inhaler*) 10 mg INH Q2H PRN PRN Reason: CRAVING Last Admin: 05/20/18 14:37 Dose: 10 mg Nicotine (Nicotine Patch 21 Mg/24 Hr*) 1 patch TRANSDERM DAILY [facility] Last Admin: 05/20/18 08:38 Dose: 1 patch Nicotine Polacrilex (Nicotine Gum*) 2 mg PO Q2H PRN PRN Reason: CRAVING Last Admin: 05/19/18 08:46 Dose: 2 mg Oxybutynin Chloride (Ditropan Tab*) 5 mg PO BID [facility] Last Admin: 05/20/18 08:42 Dose: 5 mg Pharmacy Profile Note (Nicotine Patch Removal Note*) 1 note FOLLOW UP 2100 [facility] Last Admin: 05/19/18 21:17 Dose: 1 note Venlafaxine HCl (Effexor Xr Cap*) 37.5 mg PO EVERY OTHER DAY [facility] Last Admin: 05/19/18 08:44 Dose: 37.5 mg Zolpidem Tartrate (Ambien Tab*) 10 mg PO BEDTIME PRN; Protocol PRN Reason: INSOMNIA Last Admin: 05/19/18 20:22 Dose: 10 mg - Discharge Plan Discharge Plan: Outpatient Follow Up Outpatient Program: eva SOLER, KRSITIN
[2018-05-20] MEDS: Divalproex ER TAB(*) 500 MG PO SCH (20:22)
[2018-05-20] MEDS: Divalproex ER TAB(*) 250 MG PO SCH (20:22)
[2018-05-20] MEDS: Zolpidem TAB* 10 MG PO PRN (20:24)
[2018-05-20] MEDS: Nicotine Patch Removal NOTE FOLLOW UP SCH (20:27)
[2018-05-21] MEDS: Nicotine Inhaler* 10 MG AMP INH PRN ×5 (08:56→20:18)
[2018-05-21] MEDS: Lurasidone(*) 60 MG TAB PO SCH (08:56)
[2018-05-21] MEDS: Gabapentin CAP(*) 300 MG PO SCH ×3 (08:57→20:19)
[2018-05-21] MEDS: Diclofenac Sodium EC TAB* 25 MG PO PRN ×3 (08:57→20:20)
[2018-05-21] MEDS: Venlafaxine EXT RELEASE CAP* 37.5 MG PO SCH (08:58)
[2018-05-21] MEDS: Oxybutynin TAB* 5 MG PO SCH ×2 (08:58→20:19)
[2018-05-21] MEDS: Nicotine PATCH 21 MG/24 HR* PATCH TRANSDERM SCH (08:59)
[2018-05-21] MEDS: Carisoprodol TAB* 350 MG PO PRN ×2 (09:01→20:20)
--- NOTE | 2018-05-21 11:41 | PN ---
[facility]: Group Therapy Note - Service Type Service Type: [id number] Group Psychotherapy - Cognitive Behavioral Group Therapy ( CBT):Patient was attentive and participatory in CBT programming this morning, and remained in good behavioral control. Patient expressed positive insights regarding relevant treatment interventions and goals.
[2018-05-21] MEDS: Ibuprofen TAB* 400 MG PO PRN (13:10)
[2018-05-21] MEDS ORDERED: LORazepam TAB(*) 0.5 MG PO PRN (16:31)
[2018-05-21] MEDS: Divalproex ER TAB(*) 500 MG PO SCH (20:18)
[2018-05-21] MEDS: Divalproex ER TAB(*) 250 MG PO SCH (20:19)
[2018-05-21] MEDS: Zolpidem TAB* 10 MG PO PRN (20:21)
[2018-05-21] MEDS: Nicotine Patch Removal NOTE FOLLOW UP SCH (20:22)
[2018-05-22] MEDS: Nicotine Inhaler* 10 MG AMP INH PRN ×2 (07:28→10:15)
[2018-05-22 08:08] VITALS: BP 136/76
[2018-05-22] MEDS: Lurasidone(*) 60 MG TAB PO SCH (08:24)
[2018-05-22] MEDS: Carisoprodol TAB* 350 MG PO PRN (08:24)
[2018-05-22] MEDS: Gabapentin CAP(*) 300 MG PO SCH (08:24)
[2018-05-22] MEDS: Oxybutynin TAB* 5 MG PO SCH (08:24)
[2018-05-22] MEDS: Nicotine PATCH 21 MG/24 HR* PATCH TRANSDERM SCH (08:25)
--- NOTE | 2018-05-23 20:34 | DS ---
CC: Dr. Erica Lopez; [facility]; [facility] * DISCHARGE SUMMARY: DATE OF PSYCHIATRIC ADMISSION: 05/14/18 DATE OF DISCHARGE: 05/22/18 SUPERVISING PSYCHIATRIST: Dr. Mauricio Sullivan.* (DICTATED BY BRAD CALLOWAY NP) DISCHARGE DIAGNOSES: Major depressive disorder, opioid dependence in early remission. CONDITION AT THE TIME OF DISCHARGE: Improved. She is euthymic with bright affect. She has been successfully detoxed from opioid pain medicines including tramadol. She has been exhibiting increased use of coping skills and decreased use of p.r.n. medications. She is encouraged to continue this pattern and to eventually no longer need p.r.n. medications. The patient's was present at the time of discharge. We discussed medication safety, recommendations, means restriction, and aftercare. The patient denies suicidal ideation. She reported readiness for discharge. She identified that today was a good day for her and her family to do so. MENTAL STATUS EXAM: Lianne is a 33-year-old white female, obese, well-groomed, dressed in her own clothing. She is noted to have good ADLs. She participates fully in conversation. She is alert and oriented x3. Eye contact is good. Speech is soft and articulate. Mood is euthymic with full range of affect. No abnormal psychomotor activity noted. Thought process is logical and goal directed. Thought content is negative for suicidal ideation, HI or . Thought process is logical, coherent, and goal directed. She denies auditory or visual hallucinations. There are no perceptual disturbances noted. Insight and judgment are good, improved. Fund of knowledge is excellent. DISCHARGE INSTRUCTIONS: Given to the patient: A. Medications: 1. Soma was not approved by insurance and this was changed to tizanidine 2 mg p.o. daily p.r.n. pain. 2. Diclofenac EC 50 mg t.i.d. p.r.n. pain. 3. Depakote 1250 mg p.o. at bedtime. 4. Gabapentin 600 mg p.o. t.i.d. 5. Lorazepam 0.25 mg p.o. daily p.r.n. anxiety, encouraged to use sparingly and no longer after this prescription. 6. Lurasidone 60 mg daily. 7. Nicotine inhaler 10 mg q.2 hours p.r.n. craving. 8. Nicotine patch 21 mg daily, remove at bedtime. All of the above were prescribed electronically. The patient will continue on: 1. Lunesta 3 mg p.o. q.h.s. 2. Ditropan 5 mg p.o. b.i.d. B. Diet: Regular. C. Activities: Ambulation as tolerated. Tobacco cessation was provided to the patient. There are no pending labs or diagnostic studies. D. Followup care: The patient will follow up with [facility] for continued weekly therapy with Paige Alvares and medication management per Dr. Cruz. She will follow up for substance use treatment at [facility] in [place]. She was given a referral for [facility] Case Management. The patient will follow up with her primary care provider, Dr. Lopez, within 30 days. E. Substance use followup: As above, [facility]. HOSPITAL COURSE: Part A: Reason for admission: The patient presented to the emergency department due to suicidal ideation and an overdose on baclofen on . She was admitted to Medicine and stabilized. She was transferred to adult behavioral services unit on 9.39 status on 05/14/18. Part B: Psychiatric treatment rendered: The patient was admitted to adult behavioral services unit on 9.39 status. She was placed on 15-minute checks for safety. She was encouraged to participate with supportive milieu, individual sessions with staff, and psychoeducational groups. She endorsed taking too many medications when feeling emotional or physical pain. It was noted over the course of the hospitalization that emotional pain was more triggering for her than physical pain. She participated well in groups. She was safe on all checks and in behavior control. On first day of admission, we discussed reducing the number of medications that she takes including tramadol. It was noted that one of such changes were discussed. She politely asked for a replacement. She was given information about medication dependence and encouraged to identify emotions and thoughts that lead to wanting to take medicines. The patient agreed to Physical Therapy consult to help with back pain. She was given recommendation of exercises to perform twice a day. The patient's Depakote level was subtherapeutic on 1000 mg dose. We increased this to 1250 mg, but VA level was 63. She tolerated new medications well. We slowly tapered venlafaxine and this was discontinued at the time of discharge. She continued on lurasidone 60 mg. She requested increasing the gabapentin. This was declined due to the patient's abuse potential. The patient reported prior to being admitted that her family had given her "an ultimatum to go to rehab." We discussed this over the course of admission. The patient reported fear of being away from her family for 30 days including her 3- year-old son. In fact, she was quite tearful when it was not determined it was safe to have her son visit on the unit. The patient had not yet fully engaged in outpatient treatment at [facility] due to readmission to the hospital. The patient and her family members were given feedback that it is appropriate to trial full course of outpatient substance use treatment at this time. Due to the patient's improvement in mood and ability to cope with emotions, discharge was agreed upon. The patient also reported readiness for discharge. As stated above, she and her were given information about expectations for aftercare. The patient was encouraged to continue to increase her coping skills for anxiety in lieu of taking medications. It is my recommendation that she avoid being given habit-forming medications. BRAD CALLOWAY NP [id number]/CPS #: [id number] ALENA
== END 2018-05-22 11:30 | disposition home or self-care (01) | DRG 885 ==
LOC: ED 00:17 → ICU 09:45 → OBSVTOIN 09:45 → INTOOBSV 09:46 → MED 22:15 → BSU 05-14 14:00
PROVIDERS: ADMIT Internal Medicine; ATTEND Internal Medicine
PROC: GZHZZZZ Group Psychotherapy (ICD-10-PCS; principal; 2018-05-13)
DX: F31.30 Bipolar disorder, current episode depressed, mild or moderate severity, unspecified (principal); F11.21 Opioid dependence, in remission; E66.9 Obesity, unspecified; T42.8X2A Poisoning by antiparkinsonism drugs and other central muscle-tone depressants, intentional self-harm, initial encounter; F41.9 Anxiety disorder, unspecified; E66.01 Morbid (severe) obesity due to excess calories; J45.909 Unspecified asthma, uncomplicated; M46.90 Unspecified inflammatory spondylopathy, site unspecified; L68.0 Hirsutism; F17.210 Nicotine dependence, cigarettes, uncomplicated; M19.90 Unspecified osteoarthritis, unspecified site; E87.6 Hypokalemia; Y92.9 Unspecified place or not applicable; Z81.8 Family history of other mental and behavioral disorders; Z81.1 Family history of alcohol abuse and dependence; Z88.0 Allergy status to penicillin; Z23 Encounter for immunization; Z88.1 Allergy status to other antibiotic agents; Z88.8 Allergy status to other drugs, medicaments and biological substances; Z68.42 Body mass index [BMI] 45.0-49.9, adult
CPT/HCPCS: 36415; 80048; 80053; 80164; 80307; 80320; 80329; 81003; 81015; 84443; 84702; 85025; 90686; 90853; 93005; 99222; 99231; 99232; 99238; 99285; 99406; A9270-GY; G0480; G8978-GP-CH; G8979-GP-CH; G8980-GP-CH; J3480